=== PATIENT | male | born 1955 | race Caucasian/White ===

== ENCOUNTER 2017-10-19 23:34 | Inpatient (IN) | payer SELFPAY ==
[~2017-10-19] VITALS: Ht 190.5 cm; Wt 90.0 kg
[2017-10-19 23:34] VITALS: BP 159/92
[2017-10-19 23:47] LABS: BASO # 0.1 10*3/uL (0.0-0.1); BASO % 0.9 % (0.0-1.0); EOS # 0.2 10*3/uL (0.0-0.4); EOS % 1.9 % (1.0-4.0); HEMATOCRIT 46.5 % (42.0-52.0); LYMPH # 2.2 10*3/uL (1.3-4.4); LYMPH % 26.8 % (27.0-41.0); MEAN CELL VOLUME 92.6 fl (80.0-94.0); MEAN CORPUSCULAR HGB 31.9 pg (27.0-31.0); MEAN CORPUSCULAR HGB CONC 34.4 g/dl (33.0-37.0); MEAN PLATELET VOLUME 8.9 fl (9.6-12.3); MONO # 0.8 10*3/uL (0.1-1.0); NEUT # 4.9 10*3/uL (2.3-7.9); NEUT % 60.3 % (47.0-73.0); PLATELET COUNT AUTOMATED 143 10*3/uL (130-400); RED BLOOD COUNT 5.02 10*6/uL (4.50-5.90); RED CELL DISTRI WIDTH 12.4 % (0-14.5); WHITE BLOOD COUNT 8.1 10*3/uL (4.8-10.8)
[2017-10-19 23:58] LABS: ACT PARTIAL THROMBO TIME 24.7 SECONDS (20.8-31.5); INTERNATIONAL NORM RATIO 0.9 (2.0-3.5)
[2017-10-20 00:03] LABS: ALBUMIN 4.1 gm/dl (3.1-4.5); ALKALINE PHOSPHATASE 88 U/L (45-117); BUN 9 mg/dl (7-24); CHLORIDE 101 mmol/L (98-107); CREATININE 0.99 mg/dL (0.70-1.30); POTASSIUM 3.5 mmol/L (3.5-5.1); SGOT/AST 37 IU/L (3-35); SGPT/ALT 40 U/L (12-78); SODIUM 135 mmol/L (136-145); TOTAL PROTEIN 7.7 gm/dL (6.4-8.2); TROPONIN I 0.021 ng/ml (<0.045)
[2017-10-20 00:08] VITALS: BP 129/97
[2017-10-20 00:37] LABS: BILIRUBIN NEGATIVE (NEGATIVE); BLOOD TRACE-INTACT (NEGATIVE); CLARITY CLEAR (CLEAR); COLOR YELLOW (YELLOW); GLUCOSE NEGATIVE (NEGATIVE); KETONE NEGATIVE (NEGATIVE); LEUKO ESTERASE NEGATIVE (NEGATIVE); NITRITE NEGATIVE (NEGATIVE); PH 5.5 (5.0-9.0); SPECIFIC GRAVITY <= 1.005 (1.005-1.030); UROBILINOGEN 0.2 E.U./dl (0.2-1.0)
[2017-10-20 00:45] LABS: RBC 0-2 rbc/hpf (0-2)
[2017-10-20 00:47] LABS: URINE AMPHETAMINES < 1000 (1000ng/ml); URINE BARBITURATES < 200 (200ng/ml); URINE BENZODIAZEPINES < 200 (200ng/ml); URINE CANNABINOIDS (THC) > 50 (50ng/ml); URINE COCAINE < 300 (300ng/ml); URINE METHADONE < 300 (300ng/ml); URINE OPIATES < 300 (300ng/ml)
[2017-10-20 00:48] LABS: URINE PHENCYCLIDINE < 25 (25ng/ml)
[2017-10-20 00:49] VITALS: BP 138/91
[2017-10-20 06:14] LABS: BASO % 0.7 % (0.0-1.0); EOS # 0.2 10*3/uL (0.0-0.4); EOS % 3.5 % (1.0-4.0); HEMATOCRIT 44.7 % (42.0-52.0); HEMOGLOBIN 14.8 g/dl (14.0-18.0); LYMPH # 1.8 10*3/uL (1.3-4.4); LYMPH % 32.6 % (27.0-41.0); MEAN CELL VOLUME 95.1 fl (80.0-94.0); MEAN CORPUSCULAR HGB 31.5 pg (27.0-31.0); MEAN CORPUSCULAR HGB CONC 33.1 g/dl (33.0-37.0); MEAN PLATELET VOLUME 9.3 fl (9.6-12.3); MONO # 0.6 10*3/uL (0.1-1.0); MONO % 11.5 % (3.0-9.0); NEUT # 2.8 10*3/uL (2.3-7.9); NEUT % 51.5 % (47.0-73.0); PLATELET COUNT AUTOMATED 131 10*3/uL (130-400); RED CELL DISTRI WIDTH 12.4 % (0-14.5); WHITE BLOOD COUNT 5.4 10*3/uL (4.8-10.8)
[2017-10-20 06:20] LABS: ALBUMIN 3.6 gm/dl (3.1-4.5); ALKALINE PHOSPHATASE 79 U/L (45-117); BUN 7 mg/dl (7-24); CHLORIDE 103 mmol/L (98-107); CHOLESTEROL 172 mg/dL (<200); CREATININE 0.95 mg/dL (0.70-1.30); HDL CHOLESTEROL 68 mg/dl (40-60); LDL CHOLESTEROL 81 mg/dL (9-159); PHOSPHOROUS 3.1 mg/dL (2.5-4.9); POTASSIUM 3.5 mmol/L (3.5-5.1); SGOT/AST 37 IU/L (3-35); SGPT/ALT 36 U/L (12-78); SODIUM 143 mmol/L (136-145); TOTAL PROTEIN 6.8 gm/dL (6.4-8.2); TRIGLYCERIDES 117 mg/dl (<150); VLDL CHOLESTEROL 23 mg/dL (6-40)
[2017-10-20 08:00] VITALS: BP 138/86
[2017-10-20 08:04] LABS: VITAMIN D, 25-HYDROXY 27.7 ng/mL (30-100)
[2017-10-20 12:00] VITALS: BP 156/54
[2017-10-20 16:00] VITALS: BP 152/80
[2017-10-20 20:00] VITALS: BP 139/79
[2017-10-21] VITALS: BP 143/94
[2017-10-21 08:00] VITALS: BP 140/88
[2017-10-21 12:00] VITALS: BP 129/80
[2017-10-21 16:00] VITALS: BP 150/82
== END 2017-10-21 20:15 | disposition left against medical advice (07) | DRG 313 ==
LOC: ED → 5E 10-20 01:01 → EDHOLD 10-20 01:01 → 5E 10-20 01:26
PROVIDERS: Emergency Medicine Emergency Medical Services; Internal Medicine Hospice and Palliative Medicine
PROC: 3E073KZ Introduction of Other Diagnostic Substance into Coronary Artery, Percutaneous Approach (ICD-10-PCS; principal; 2017-10-20)
PROC: 4A02XM4 Measurement of Cardiac Total Activity, External Approach (ICD-10-PCS; principal; 2017-10-20)
DX: R07.9 Chest pain, unspecified (principal); K92.0 Hematemesis; E83.41 Hypermagnesemia; E83.51 Hypocalcemia; E87.1 Hypo-osmolality and hyponatremia; F33.9 Major depressive disorder, recurrent, unspecified; D72.810 Lymphocytopenia; R00.0 Tachycardia, unspecified; R74.0 Nonspecific elevation of levels of transaminase and lactic acid dehydrogenase [LDH]; F43.10 Post-traumatic stress disorder, unspecified; Z71.6 Tobacco abuse counseling; F14.90 Cocaine use, unspecified, uncomplicated; F12.90 Cannabis use, unspecified, uncomplicated; Z90.49 Acquired absence of other specified parts of digestive tract; Z96.652 Presence of left artificial knee joint; F17.200 Nicotine dependence, unspecified, uncomplicated; Z82.49 Family history of ischemic heart disease and other diseases of the circulatory system; Z82.0 Family history of epilepsy and other diseases of the nervous system; F10.129 Alcohol abuse with intoxication, unspecified; Z53.21 Procedure and treatment not carried out due to patient leaving prior to being seen by health care provider

== ENCOUNTER 2017-12-12 00:25 | Inpatient (IN) | payer MEDICAID ==
[2017-12-12] VITALS (14 sets, daily range): BP systolic 116–162; BP diastolic 65–119
[~2017-12-12] VITALS: Ht 190.5 cm; Wt 95.3 kg
--- NOTE | ~2017-12-12 | EKG ---
[place], [place] ELECTROCARDIOGRAM REPORT NAME: BILLIE BARNETT UNIT #: [id number] ROOM: 523 DOCTOR: WILBERT DRAFT REPORT BIRTHDATE: [birth year] [facility] Test Date: 2017-12-12 Test Time: 00:31:54 Pat Name: BILLIE BARNETT Department: ER Room: 12 Gender: M Tree Surgeon Helper: ANNABEL : 1955 Requested By: STEVE PITTMAN Order Number: [id number] Reading MD: Gwendolyn Fan MD Measurements Intervals [place] Rate: 99 P: 42 UT: 182 QRS: 54 QRSD: 95 T: 37 QT: 347 QTc: 446 Interpretive Statements Sinus tachycardia Probable anteroseptal infarct, old Electronically Signed On 12-12-2017 9:43:58 PDT by Gwendolyn Fan MD CM:EKGRPT:ELECTROCARDIOGRAM REPORT 0031 0943 STEVE PITTMAN MD EPIPHANY DRAFT REPORT STEVE PITTMAN MD
--- NOTE | ~2017-12-12 | EKG ---
[place], [place] ELECTROCARDIOGRAM REPORT NAME: BILLIE BARNETT UNIT #: [id number] ROOM: 523 DOCTOR: WILBERT DRAFT REPORT BIRTHDATE: [birth year] [facility] Test Date: 2017-12-12 Test Time: 03:50:31 Pat Name: BILLIE BARNETT Department: Room: [facility] Gender: M Mobility Manager: CARLIEN : 1955 Requested By: STEVE PITTMAN Order Number: [id number] Reading MD: Gwendolyn Fan MD Measurements Intervals [place] Rate: 85 P: 43 SC: 222 QRS: 36 QRSD: 96 T: 49 QT: 391 QTc: 465 Interpretive Statements Sinus rhythm Prolonged [place] interval Anteroseptal infarct, old Baseline wander in lead(s) V1 Electronically Signed On 12-12-2017 9:46:50 PDT by Gwendolyn Fan MD CM:EKGRPT:ELECTROCARDIOGRAM REPORT 0350 0946 STEVE PITTMAN MD EPIPHANY DRAFT REPORT STEVE PITTMAN MD
--- NOTE | ~2017-12-12 | EKG ---
[place], [place] ELECTROCARDIOGRAM REPORT NAME: BILLIE BARNETT UNIT #: [id number] ROOM: 523 DOCTOR: EPIPHANY DRAFT REPORT BIRTHDATE: [birth year] [facility] Test Date: 2017-12-12 Test Time: 06:18:47 Pat Name: BILLIE BARNETT Department: Room: Gender: M Merchandiser Seasonal: : 1955 Requested By: STEVE PITTMAN Order Number: [id number] Reading MD: Gwendolyn Fan MD Measurements Intervals [place] Rate: 82 P: 48 NM: 225 QRS: 45 QRSD: 93 T: 40 QT: 400 QTc: 468 Interpretive Statements Sinus rhythm Ventricular premature complex Prolonged NM interval Probable anteroseptal infarct, old Electronically Signed On 12-12-2017 9:46:58 PDT by Gwendolyn Fan MD CM:EKGRPT:ELECTROCARDIOGRAM REPORT 0618 0946 STEVE PITTMAN MD EPIPHANY DRAFT REPORT STEVE PITTMAN MD
[2017-12-12 01:03] LABS: BASO % 0.7 % (0.0-1.0); EOS # 0.2 10*3/uL (0.0-0.4); EOS % 3.4 % (1.0-4.0); HEMATOCRIT 44.2 % (42.0-52.0); HEMOGLOBIN 14.9 g/dl (14.0-18.0); LYMPH # 1.3 10*3/uL (1.3-4.4); LYMPH % 24.2 % (27.0-41.0); MEAN CELL VOLUME 100.9 fl (80.0-94.0); MEAN CORPUSCULAR HGB CONC 33.7 g/dl (33.0-37.0); MEAN PLATELET VOLUME 8.9 fl (9.6-12.3); MONO # 0.6 10*3/uL (0.1-1.0); MONO % 10.8 % (3.0-9.0); NEUT # 3.4 10*3/uL (2.3-7.9); NEUT % 60.7 % (47.0-73.0); PLATELET COUNT AUTOMATED 119 10*3/uL (130-400); RED BLOOD COUNT 4.38 10*6/uL (4.50-5.90); RED CELL DISTRI WIDTH 13.9 % (0-14.5); WHITE BLOOD COUNT 5.5 10*3/uL (4.8-10.8)
[2017-12-12 01:16] LABS: ACT PARTIAL THROMBO TIME 24.2 SECONDS (20.8-31.5)
[2017-12-12 01:18] LABS: ALBUMIN 3.8 gm/dl (3.1-4.5); ALKALINE PHOSPHATASE 62 U/L (45-117); BUN 9 mg/dl (7-24); CHLORIDE 103 mmol/L (98-107); CKMB 4.8 ng/ml (0.5-3.6); CPK 353 U/L (39-308); LIPASE 165 U/L (73-393); POTASSIUM 3.4 mmol/L (3.5-5.1); SGOT/AST 29 IU/L (3-35); SGPT/ALT 45 U/L (12-78); SODIUM 138 mmol/L (136-145); TOTAL PROTEIN 7.4 gm/dL (6.4-8.2); TROPONIN I < 0.015 ng/ml (<0.045)
[2017-12-12 01:38] LABS: BILIRUBIN NEGATIVE (NEGATIVE); BLOOD NEGATIVE (NEGATIVE); CLARITY CLEAR (CLEAR); COLOR YELLOW (YELLOW); GLUCOSE NEGATIVE (NEGATIVE); KETONE NEGATIVE (NEGATIVE); LEUKO ESTERASE NEGATIVE (NEGATIVE); NITRITE NEGATIVE (NEGATIVE); PH 5.5 (5.0-9.0); SPECIFIC GRAVITY <= 1.005 (1.005-1.030); UROBILINOGEN 0.2 E.U./dl (0.2-1.0)
[2017-12-12 01:46] LABS: BACTERIA TRACE
[2017-12-12 07:00] LABS: BASO % 0.7 % (0.0-1.0); HEMATOCRIT 42.5 % (42.0-52.0); HEMOGLOBIN 13.8 g/dl (14.0-18.0); LYMPH # 0.3 10*3/uL (1.3-4.4); LYMPH % 10.7 % (27.0-41.0); MEAN CELL VOLUME 101.7 fl (80.0-94.0); MEAN CORPUSCULAR HGB CONC 32.5 g/dl (33.0-37.0); MEAN PLATELET VOLUME 9.1 fl (9.6-12.3); MONO # 0.1 10*3/uL (0.1-1.0); MONO % 2.1 % (3.0-9.0); NEUT # 2.4 10*3/uL (2.3-7.9); NEUT % 86.1 % (47.0-73.0); PLATELET COUNT AUTOMATED 116 10*3/uL (130-400); RED BLOOD COUNT 4.18 10*6/uL (4.50-5.90); RED CELL DISTRI WIDTH 13.9 % (0-14.5); WHITE BLOOD COUNT 2.8 10*3/uL (4.8-10.8)
[2017-12-12 07:09] LABS: BUN 10 mg/dl (7-24); CHLORIDE 105 mmol/L (98-107); CREATININE 1.07 mg/dL (0.70-1.30); PHOSPHOROUS 1.9 mg/dL (2.5-4.9); POTASSIUM 3.8 mmol/L (3.5-5.1); SODIUM 139 mmol/L (136-145)
[2017-12-13] VITALS: BP 160/90
[2017-12-13 02:00] VITALS: BP 140/68
[2017-12-13 06:10] LABS: BASO % 0.3 % (0.0-1.0); EOS % 0.3 % (1.0-4.0); HEMATOCRIT 43.1 % (42.0-52.0); LYMPH # 1.1 10*3/uL (1.3-4.4); MEAN CELL VOLUME 102.1 fl (80.0-94.0); MEAN CORPUSCULAR HGB 33.2 pg (27.0-31.0); MEAN CORPUSCULAR HGB CONC 32.5 g/dl (33.0-37.0); MEAN PLATELET VOLUME 9.6 fl (9.6-12.3); MONO # 0.7 10*3/uL (0.1-1.0); NEUT # 5.7 10*3/uL (2.3-7.9); PLATELET COUNT AUTOMATED 120 10*3/uL (130-400); RED BLOOD COUNT 4.22 10*6/uL (4.50-5.90); RED CELL DISTRI WIDTH 13.7 % (0-14.5); WHITE BLOOD COUNT 7.5 10*3/uL (4.8-10.8)
[2017-12-13 06:25] LABS: ALBUMIN 3.5 gm/dl (3.1-4.5); ALKALINE PHOSPHATASE 52 U/L (45-117); BUN 13 mg/dl (7-24); CHLORIDE 105 mmol/L (98-107); CREATININE 1.04 mg/dL (0.70-1.30); PHOSPHOROUS 2.9 mg/dL (2.5-4.9); POTASSIUM 3.8 mmol/L (3.5-5.1); SGOT/AST 14 IU/L (3-35); SGPT/ALT 32 U/L (12-78); SODIUM 142 mmol/L (136-145); TOTAL PROTEIN 6.5 gm/dL (6.4-8.2)
[2017-12-13 12:00] VITALS: BP 129/85
[2017-12-13 16:00] VITALS: BP 137/85
== END 2017-12-13 18:15 | disposition left against medical advice (07) | DRG 607 ==
LOC: ED 00:25 → 5E 02:05
PROVIDERS: Emergency Medicine; Internal Medicine
DX: L25.5 Unspecified contact dermatitis due to plants, except food (principal); E83.41 Hypermagnesemia; F33.9 Major depressive disorder, recurrent, unspecified; F10.232 Alcohol dependence with withdrawal with perceptual disturbance; M94.0 Chondrocostal junction syndrome [Tietze]; R79.89 Other specified abnormal findings of blood chemistry; F19.10 Other psychoactive substance abuse, uncomplicated; F10.229 Alcohol dependence with intoxication, unspecified; R29.6 Repeated falls; R00.0 Tachycardia, unspecified; E87.6 Hypokalemia; Z53.21 Procedure and treatment not carried out due to patient leaving prior to being seen by health care provider; Z72.0 Tobacco use; Z71.6 Tobacco abuse counseling; Z91.81 History of falling; Z90.49 Acquired absence of other specified parts of digestive tract; Z82.49 Family history of ischemic heart disease and other diseases of the circulatory system; Z81.8 Family history of other mental and behavioral disorders

== ENCOUNTER 2017-12-23 15:07 | Inpatient (IN) | payer MEDICAID ==
[~2017-12-23] VITALS: Ht 188 cm; Wt 97.7 kg
--- NOTE | ~2017-12-23 | EKG ---
[place], [place] ELECTROCARDIOGRAM REPORT NAME: BILLIE BARNETT UNIT #: [id number] ROOM: [facility] DOCTOR: WILBERT DRAFT REPORT BIRTHDATE: [birth year] [facility] Test Date: 2017-12-23 Test Time: 15:13:43 Pat Name: BILLIE BARNETT Department: Room: [facility] Gender: M Shingles Roofer Helper: 15 : 1955 Requested By: KARRI TOLBERT Order Number: [id number] Reading MD: Gwendolyn Fan MD Measurements Intervals [place] Rate: 86 P: 34 SD: 216 QRS: 17 QRSD: 101 T: 29 QT: 388 QTc: 464 Interpretive Statements Sinus rhythm Borderline prolonged SD interval Probable anteroseptal infarct, old Baseline wander in lead(s) V2 Compared to ECG 12/12/2017 06:18:47 Ventricular premature complex(es) no longer present Myocardial infarct finding still present Electronically Signed On 12-24-2017 11:11:30 PDT by Gwendolyn Fan MD CM:EKGRPT:ELECTROCARDIOGRAM REPORT 1513 1111 KARRI ATKINS DRAFT REPORT KARRI TOLBERT
--- NOTE | ~2017-12-23 | EKG ---
[place], [place] ELECTROCARDIOGRAM REPORT NAME: BILLIE BARNETT UNIT #: [id number] ROOM: [facility] DOCTOR: WILBERT DRAFT REPORT BIRTHDATE: [birth year] [facility] Test Date: 2017-12-23 Test Time: 21:43:30 Pat Name: BILLIE BARNETT Department: Room: [facility] Gender: M Heel Sander Rubber: EKG.MD : 1955 Requested By: KARRI TOLBERT Order Number: [id number] Reading MD: Gwendolyn Fan MD Measurements Intervals [place] Rate: 78 P: 56 [place]: 230 QRS: 54 QRSD: 97 T: 28 QT: 426 QTc: 486 Interpretive Statements Sinus rhythm Multiform ventricular premature complexes Prolonged [place] interval Anteroseptal infarct, age indeterminate Baseline wander in lead(s) V3 Compared to ECG 12/12/2017 06:18:47 No significant changes Electronically Signed On 12-24-2017 11:12:45 PDT by Gwendolyn Fan MD CM:EKGRPT:ELECTROCARDIOGRAM REPORT 1112 KARRI TOLBERT EPIPHANY DRAFT REPORT KARRI TOLBERT
--- NOTE | ~2017-12-23 | EKG ---
[place], [place] ELECTROCARDIOGRAM REPORT NAME: BILLIE BARNETT UNIT #: [id number] ROOM: [facility] DOCTOR: WILBERT DRAFT REPORT BIRTHDATE: [birth year] [facility] Test Date: 2017-12-23 Test Time: 18:31:51 Pat Name: BILLIE BARNETT Department: Room: [facility] Gender: M Fitness And Wellness Instructor: EKG.HI : 1955 Requested By: KARRI TOLBERT Order Number: [id number] Reading MD: Gwendolyn Fan MD Measurements Intervals [place] Rate: 80 P: 27 TX: 224 QRS: 10 QRSD: 97 T: 40 QT: 433 QTc: 500 Interpretive Statements Sinus rhythm Ventricular premature complex Prolonged [place] interval Probable anteroseptal infarct, old Compared to ECG 12/12/2017 06:18:47 No significant changes Electronically Signed On 12-24-2017 11:12:32 PDT by Gwendolyn Fan MD CM:EKGRPT:ELECTROCARDIOGRAM REPORT 1831 1112 KARRI TOLBERT EPIPHANY DRAFT REPORT KARRI TOLBERT
[2017-12-23 15:07] VITALS: BP 140/94
[2017-12-23 15:23] LABS: BASO % 0.8 % (0.0-1.0); EOS # 0.2 10*3/uL (0.0-0.4); HEMATOCRIT 42.5 % (42.0-52.0); HEMOGLOBIN 14.3 g/dl (14.0-18.0); LYMPH # 1.4 10*3/uL (1.3-4.4); LYMPH % 29.6 % (27.0-41.0); MEAN CELL VOLUME 100.2 fl (80.0-94.0); MEAN CORPUSCULAR HGB 33.7 pg (27.0-31.0); MEAN CORPUSCULAR HGB CONC 33.6 g/dl (33.0-37.0); MEAN PLATELET VOLUME 8.4 fl (9.6-12.3); MONO # 0.5 10*3/uL (0.1-1.0); MONO % 10.2 % (3.0-9.0); NEUT # 2.6 10*3/uL (2.3-7.9); PLATELET COUNT AUTOMATED 121 10*3/uL (130-400); RED BLOOD COUNT 4.24 10*6/uL (4.50-5.90); RED CELL DISTRI WIDTH 13.2 % (0-14.5); WHITE BLOOD COUNT 4.8 10*3/uL (4.8-10.8)
[2017-12-23 15:32] VITALS: BP 140/91
[2017-12-23 15:36] LABS: ACT PARTIAL THROMBO TIME 25.5 SECONDS (20.8-31.5)
[2017-12-23 15:43] LABS: ALBUMIN 3.8 gm/dl (3.1-4.5); ALKALINE PHOSPHATASE 71 U/L (45-117); BUN 8 mg/dl (7-24); CHLORIDE 104 mmol/L (98-107); CREATININE 0.98 mg/dL (0.70-1.30); POTASSIUM 3.7 mmol/L (3.5-5.1); SGOT/AST 26 IU/L (3-35); SGPT/ALT 46 U/L (12-78); SODIUM 138 mmol/L (136-145)
[2017-12-23 15:45] LABS: TROPONIN I < 0.015 ng/ml (<0.045)
[2017-12-23 16:48] VITALS: BP 142/85
[2017-12-23 17:00] VITALS: BP 157/91
[2017-12-23 20:00] VITALS: BP 100/53
[2017-12-23 22:09] LABS: BILIRUBIN NEGATIVE (NEGATIVE); BLOOD NEGATIVE (NEGATIVE); CLARITY CLEAR (CLEAR); COLOR YELLOW (YELLOW); GLUCOSE NEGATIVE (NEGATIVE); KETONE NEGATIVE (NEGATIVE); LEUKO ESTERASE NEGATIVE (NEGATIVE); NITRITE NEGATIVE (NEGATIVE); SPECIFIC GRAVITY 1.025 (1.005-1.030); UROBILINOGEN 0.2 E.U./dl (0.2-1.0)
[2017-12-23 22:18] LABS: URINE AMPHETAMINES < 1000 (1000ng/ml); URINE BARBITURATES < 200 (200ng/ml); URINE BENZODIAZEPINES > 200 (200ng/ml); URINE CANNABINOIDS (THC) < 50 (50ng/ml); URINE COCAINE < 300 (300ng/ml); URINE METHADONE < 300 (300ng/ml); URINE OPIATES < 300 (300ng/ml)
[2017-12-23 22:19] LABS: URINE PHENCYCLIDINE < 25 (25ng/ml)
[2017-12-24] VITALS: BP 126/57
[2017-12-24 04:00] VITALS: BP 117/62
[2017-12-24 05:51] LABS: BASO % 0.5 % (0.0-1.0); EOS # 0.2 10*3/uL (0.0-0.4); EOS % 3.3 % (1.0-4.0); HEMATOCRIT 41.7 % (42.0-52.0); HEMOGLOBIN 13.5 g/dl (14.0-18.0); LYMPH # 1.6 10*3/uL (1.3-4.4); LYMPH % 28.7 % (27.0-41.0); MEAN CORPUSCULAR HGB 33.3 pg (27.0-31.0); MEAN CORPUSCULAR HGB CONC 32.4 g/dl (33.0-37.0); MEAN PLATELET VOLUME 8.9 fl (9.6-12.3); MONO # 0.4 10*3/uL (0.1-1.0); MONO % 7.5 % (3.0-9.0); NEUT # 3.3 10*3/uL (2.3-7.9); NEUT % 59.5 % (47.0-73.0); PLATELET COUNT AUTOMATED 112 10*3/uL (130-400); RED BLOOD COUNT 4.05 10*6/uL (4.50-5.90); RED CELL DISTRI WIDTH 13.2 % (0-14.5); WHITE BLOOD COUNT 5.5 10*3/uL (4.8-10.8)
[2017-12-24 06:08] LABS: BUN 12 mg/dl (7-24); CHLORIDE 107 mmol/L (98-107); CREATININE 1.12 mg/dL (0.70-1.30); PHOSPHOROUS 3.2 mg/dL (2.5-4.9); POTASSIUM 3.9 mmol/L (3.5-5.1); SODIUM 142 mmol/L (136-145)
[2017-12-24 08:00] VITALS: BP 119/62
[2017-12-24 12:00] VITALS: BP 109/56
[2017-12-24 16:00] VITALS: BP 152/68
[2017-12-24 20:00] VITALS: BP 159/90
[2017-12-25] VITALS: BP 154/90
[2017-12-25 08:00] VITALS: BP 164/88
[2017-12-25 12:00] VITALS: BP 154/86
[2017-12-25 16:00] VITALS: BP 152/97
[2017-12-25 20:00] VITALS: BP 153/101
[2017-12-26 00:20] VITALS: BP 158/98
[2017-12-26 08:00] VITALS: BP 100/58
[2017-12-26 12:00] VITALS: BP 102/58
[2017-12-26 16:00] VITALS: BP 106/75
[2017-12-26 20:00] VITALS: BP 119/62
[2017-12-27] VITALS: BP 124/66
[2017-12-27 08:00] VITALS: BP 140/80
== END 2017-12-27 14:15 | disposition home or self-care (01) | DRG 206 ==
LOC: ED 15:07 → 4E 15:55 → EDHOLD 15:55 → ICCU 16:21 → 4E 12-24 17:05
PROVIDERS: Nurse Practitioner Family; Student in an Organized Health Care Education/Training Program
DX: M94.0 Chondrocostal junction syndrome [Tietze] (principal); D69.6 Thrombocytopenia, unspecified; E83.41 Hypermagnesemia; E83.51 Hypocalcemia; F33.9 Major depressive disorder, recurrent, unspecified; J98.11 Atelectasis; D75.89 Other specified diseases of blood and blood-forming organs; R73.9 Hyperglycemia, unspecified; R03.0 Elevated blood-pressure reading, without diagnosis of hypertension; Y90.8 Blood alcohol level of 240 mg/100 ml or more; I44.0 Atrioventricular block, first degree; F10.229 Alcohol dependence with intoxication, unspecified; G47.00 Insomnia, unspecified; F19.10 Other psychoactive substance abuse, uncomplicated; R29.6 Repeated falls; Z90.49 Acquired absence of other specified parts of digestive tract; Z82.49 Family history of ischemic heart disease and other diseases of the circulatory system; Z82.0 Family history of epilepsy and other diseases of the nervous system; Z71.6 Tobacco abuse counseling

== ENCOUNTER 2018-01-02 23:49 | Emergency (ER) | payer MEDICAID ==
[~2018-01-02] VITALS: Ht 187.9 cm; Wt 97.5 kg
--- NOTE | ~2018-01-02 | EKG ---
[place], [place] ELECTROCARDIOGRAM REPORT NAME: BILLIE BARNETT UNIT #: [id number] ROOM: DOCTOR: EPIPHANY DRAFT REPORT BIRTHDATE: [birth year] [facility] Test Date: 2018-01-03 Test Time: 00:00:04 Pat Name: BILLIE BARNETT Department: Room: Gender: M Tube Winder: : 1955 Requested By: RIK WARD Order Number: [id number] Reading MD: Diego Calderon MD Measurements Intervals [place] Rate: 111 P: -20 [place]: 160 QRS: 46 QRSD: 95 T: 30 QT: 339 QTc: 461 Interpretive Statements Sinus tachycardia Probable anteroseptal infarct, old Baseline wander in lead(s) II,V5,V6 Compared to ECG 12/23/2017 21:43:30 Sinus rhythm no longer present Ventricular premature complex(es) no longer present First degree AV block no longer present Myocardial infarct finding still present Electronically Signed On 01-04-2018 8:53:09 PDT by Diego Calderon MD CM:EKGRPT:ELECTROCARDIOGRAM REPORT 0000 0853 RIK BENTON DRAFT REPORT RIK WARD DO
[2018-01-03 00:45] LABS: BASO % 0.5 % (0.0-1.0); EOS # 0.1 10*3/uL (0.0-0.4); EOS % 2.3 % (1.0-4.0); HEMATOCRIT 42.2 % (42.0-52.0); HEMOGLOBIN 14.5 g/dl (14.0-18.0); LYMPH # 1.6 10*3/uL (1.3-4.4); LYMPH % 27.5 % (27.0-41.0); MEAN CELL VOLUME 99.5 fl (80.0-94.0); MEAN CORPUSCULAR HGB 34.2 pg (27.0-31.0); MEAN CORPUSCULAR HGB CONC 34.4 g/dl (33.0-37.0); MEAN PLATELET VOLUME 8.8 fl (9.6-12.3); MONO # 0.6 10*3/uL (0.1-1.0); MONO % 11.2 % (3.0-9.0); NEUT # 3.3 10*3/uL (2.3-7.9); NEUT % 58.3 % (47.0-73.0); PLATELET COUNT AUTOMATED 136 10*3/uL (130-400); RED BLOOD COUNT 4.24 10*6/uL (4.50-5.90); RED CELL DISTRI WIDTH 12.7 % (0-14.5); WHITE BLOOD COUNT 5.6 10*3/uL (4.8-10.8)
[2018-01-03 00:56] LABS: ACT PARTIAL THROMBO TIME 25.5 SECONDS (20.8-31.5)
[2018-01-03 01:02] LABS: ALBUMIN 3.6 gm/dl (3.1-4.5); ALKALINE PHOSPHATASE 65 U/L (45-117); BUN 6 mg/dl (7-24); CHLORIDE 103 mmol/L (98-107); CREATININE 1.06 mg/dL (0.70-1.30); POTASSIUM 3.5 mmol/L (3.5-5.1); SGOT/AST 27 IU/L (3-35); SGPT/ALT 47 U/L (12-78); SODIUM 139 mmol/L (136-145); TROPONIN I < 0.015 ng/ml (<0.045)
== END 2018-01-03 01:36 | disposition short-term general hospital (02) ==
LOC: ED 23:49
PROVIDERS: Student in an Organized Health Care Education/Training Program
DX: M62.81 Muscle weakness (generalized) (principal); R07.9 Chest pain, unspecified; Z87.891 Personal history of nicotine dependence; Z90.49 Acquired absence of other specified parts of digestive tract; Z98.890 Other specified postprocedural states

== ENCOUNTER 2018-01-23 23:38 | Inpatient (IN) | payer MEDICAID ==
[~2018-01-23] VITALS: Ht 193 cm; Wt 96.4 kg
--- NOTE | ~2018-01-23 | EKG ---
[place], [place] ELECTROCARDIOGRAM REPORT NAME: BILLIE BARNETT UNIT #: [id number] ROOM: [facility] DOCTOR: MARITZAANY DRAFT REPORT BIRTHDATE: [birth year] [facility] Test Date: 2018-01-24 Test Time: 00:23:46 Pat Name: BILLIE BARNETT Department: Room: [facility] Gender: M Quality Head: LING : 1955 Requested By: PATRICK FINLEY Order Number: [id number] Reading MD: Hu Barrientos MD Measurements Intervals [place] Rate: 115 P: -11 [place]: 171 QRS: 0 QRSD: 92 T: 12 QT: 317 QTc: 439 Interpretive Statements Sinus tachycardia Anteroseptal infarct, old Compared to ECG 01/14/2018 04:14:09 Sinus rhythm has been replaced by sinus tachycardia Myocardial infarct finding still present Electronically Signed On 01-24-2018 11:14:04 PDT by Hu Barrientos MD CM:EKGRPT:ELECTROCARDIOGRAM REPORT 0023 1114 PATRICK FINLEY MD EPIPHANY DRAFT REPORT PATRICK FINLEY MD
[2018-01-23 23:39] VITALS: BP 138/87
[2018-01-24] VITALS (7 sets, daily range): BP systolic 116–166; BP diastolic 70–104
[2018-01-24 00:13] LABS: BASO # 0.1 10*3/uL (0.0-0.1); BASO % 0.7 % (0.0-1.0); EOS # 0.3 10*3/uL (0.0-0.4); EOS % 4.4 % (1.0-4.0); LYMPH # 1.9 10*3/uL (1.3-4.4); LYMPH % 27.7 % (27.0-41.0); MEAN CELL VOLUME 100.9 fl (80.0-94.0); MEAN CORPUSCULAR HGB 33.6 pg (27.0-31.0); MEAN CORPUSCULAR HGB CONC 33.3 g/dl (33.0-37.0); MEAN PLATELET VOLUME 8.6 fl (9.6-12.3); MONO # 0.8 10*3/uL (0.1-1.0); MONO % 11.5 % (3.0-9.0); NEUT # 3.8 10*3/uL (2.3-7.9); NEUT % 55.6 % (47.0-73.0); PLATELET COUNT AUTOMATED 133 10*3/uL (130-400); RED BLOOD COUNT 4.46 10*6/uL (4.50-5.90); RED CELL DISTRI WIDTH 12.1 % (0-14.5); WHITE BLOOD COUNT 6.9 10*3/uL (4.8-10.8)
[2018-01-24 00:27] LABS: ALBUMIN 3.8 gm/dl (3.1-4.5); ALKALINE PHOSPHATASE 80 U/L (45-117); BUN 7 mg/dl (7-24); CHLORIDE 106 mmol/L (98-107); CREATININE 1.07 mg/dL (0.70-1.30); POTASSIUM 3.8 mmol/L (3.5-5.1); SGOT/AST 27 IU/L (3-35); SGPT/ALT 43 U/L (12-78); SODIUM 139 mmol/L (136-145); TOTAL PROTEIN 7.6 gm/dL (6.4-8.2)
[2018-01-24 00:28] LABS: ACETAMINOPHEN (TYLENOL) < 2.0 ug/ml (10-30)
[2018-01-24 00:31] LABS: BILIRUBIN NEGATIVE (NEGATIVE); BLOOD NEGATIVE (NEGATIVE); CLARITY CLEAR (CLEAR); COLOR YELLOW (YELLOW); GLUCOSE NEGATIVE (NEGATIVE); KETONE NEGATIVE (NEGATIVE); LEUKO ESTERASE NEGATIVE (NEGATIVE); NITRITE NEGATIVE (NEGATIVE); PH 5.5 (5.0-9.0); SPECIFIC GRAVITY <= 1.005 (1.005-1.030); UROBILINOGEN 0.2 E.U./dl (0.2-1.0)
[2018-01-24 00:39] LABS: URINE AMPHETAMINES < 1000 (1000ng/ml); URINE BARBITURATES < 200 (200ng/ml); URINE BENZODIAZEPINES < 200 (200ng/ml); URINE CANNABINOIDS (THC) < 50 (50ng/ml); URINE COCAINE < 300 (300ng/ml); URINE METHADONE < 300 (300ng/ml); URINE OPIATES < 300 (300ng/ml)
[2018-01-24 00:40] LABS: URINE PHENCYCLIDINE < 25 (25ng/ml)
[2018-01-24 00:50] LABS: WBC 0-2 wbc/hpf (0-5)
[2018-01-24 02:07] LABS: INTERNATIONAL NORM RATIO 0.9 (2.0-3.5)
[2018-01-25] VITALS: BP 151/70
[2018-01-25 04:00] VITALS: BP 152/99
[2018-01-25 04:34] LABS: BASO % 0.6 % (0.0-1.0); EOS # 0.2 10*3/uL (0.0-0.4); EOS % 4.5 % (1.0-4.0); HEMATOCRIT 40.7 % (42.0-52.0); HEMOGLOBIN 13.4 g/dl (14.0-18.0); LYMPH # 1.3 10*3/uL (1.3-4.4); LYMPH % 23.7 % (27.0-41.0); MEAN CORPUSCULAR HGB 33.6 pg (27.0-31.0); MEAN CORPUSCULAR HGB CONC 32.9 g/dl (33.0-37.0); MEAN PLATELET VOLUME 9.5 fl (9.6-12.3); MONO # 0.4 10*3/uL (0.1-1.0); NEUT # 3.4 10*3/uL (2.3-7.9); PLATELET COUNT AUTOMATED 94 10*3/uL (130-400); RED BLOOD COUNT 3.99 10*6/uL (4.50-5.90); RED CELL DISTRI WIDTH 12.1 % (0-14.5); WHITE BLOOD COUNT 5.4 10*3/uL (4.8-10.8)
[2018-01-25 05:02] LABS: BUN 11 mg/dl (7-24); CHLORIDE 109 mmol/L (98-107); CREATININE 0.89 mg/dL (0.70-1.30); POTASSIUM 3.7 mmol/L (3.5-5.1); SODIUM 143 mmol/L (136-145)
[2018-01-25 08:00] VITALS: BP 170/98
[2018-01-25 12:00] VITALS: BP 124/62
[2018-01-25 16:00] VITALS: BP 139/75
[2018-01-25 20:00] VITALS: BP 154/94
[2018-01-26] VITALS: BP 160/94
[2018-01-26 04:00] VITALS: BP 141/93
[2018-01-26 04:57] LABS: BUN 10 mg/dl (7-24); CHLORIDE 107 mmol/L (98-107); CREATININE 0.91 mg/dL (0.70-1.30); POTASSIUM 3.6 mmol/L (3.5-5.1); SODIUM 142 mmol/L (136-145)
[2018-01-26 06:03] LABS: BASO % 0.6 % (0.0-1.0); EOS # 0.3 10*3/uL (0.0-0.4); EOS % 5.3 % (1.0-4.0); HEMATOCRIT 42.5 % (42.0-52.0); HEMOGLOBIN 14.1 g/dl (14.0-18.0); LYMPH # 1.5 10*3/uL (1.3-4.4); LYMPH % 30.3 % (27.0-41.0); MEAN CELL VOLUME 101.4 fl (80.0-94.0); MEAN CORPUSCULAR HGB 33.7 pg (27.0-31.0); MEAN CORPUSCULAR HGB CONC 33.2 g/dl (33.0-37.0); MEAN PLATELET VOLUME 9.4 fl (9.6-12.3); MONO # 0.5 10*3/uL (0.1-1.0); MONO % 10.7 % (3.0-9.0); NEUT # 2.7 10*3/uL (2.3-7.9); NEUT % 52.9 % (47.0-73.0); PLATELET COUNT AUTOMATED 108 10*3/uL (130-400); RED BLOOD COUNT 4.19 10*6/uL (4.50-5.90); RED CELL DISTRI WIDTH 12.1 % (0-14.5); WHITE BLOOD COUNT 5.1 10*3/uL (4.8-10.8)
[2018-01-26 08:00] VITALS: BP 154/90
[2018-01-26 12:00] VITALS: BP 131/73
[2018-01-26 16:00] VITALS: BP 102/71
[2018-01-26 20:00] VITALS: BP 125/79
[2018-01-27] VITALS: BP 141/84
[2018-01-27 07:15] LABS: BASO % 0.6 % (0.0-1.0); EOS # 0.4 10*3/uL (0.0-0.4); EOS % 5.3 % (1.0-4.0); HEMATOCRIT 46.2 % (42.0-52.0); HEMOGLOBIN 15.1 g/dl (14.0-18.0); LYMPH # 1.9 10*3/uL (1.3-4.4); MEAN CELL VOLUME 102.7 fl (80.0-94.0); MEAN CORPUSCULAR HGB 33.6 pg (27.0-31.0); MEAN CORPUSCULAR HGB CONC 32.7 g/dl (33.0-37.0); MEAN PLATELET VOLUME 9.2 fl (9.6-12.3); MONO # 0.7 10*3/uL (0.1-1.0); NEUT # 3.6 10*3/uL (2.3-7.9); NEUT % 54.8 % (47.0-73.0); PLATELET COUNT AUTOMATED 98 10*3/uL (130-400); RED CELL DISTRI WIDTH 12.2 % (0-14.5); WHITE BLOOD COUNT 6.6 10*3/uL (4.8-10.8)
[2018-01-27 07:30] LABS: BUN 14 mg/dl (7-24); CHLORIDE 104 mmol/L (98-107); CREATININE 1.09 mg/dL (0.70-1.30); POTASSIUM 4.1 mmol/L (3.5-5.1); SODIUM 140 mmol/L (136-145)
[2018-01-27 08:00] VITALS: BP 122/81
[2018-01-27 16:00] VITALS: BP 144/89
[2018-01-27 20:00] VITALS: BP 144/94
[2018-01-28] VITALS: BP 141/87
[2018-01-28 08:00] VITALS: BP 122/69
[2018-01-28 12:00] VITALS: BP 111/71
[2018-01-28 16:00] VITALS: BP 116/67
[2018-01-28 20:00] VITALS: BP 101/64
[2018-01-29 00:40] VITALS: BP 121/67
[2018-01-29 08:00] VITALS: BP 134/80
[2018-01-29] MEDS ORDERED: ATARAX,VISTARIL50 MG PO (09:58)
[2018-01-29] MEDS ORDERED: ZOFRAN 4 MG ED2 TAB PO (09:58)
[2018-01-29] MEDS ORDERED: LISINOPRIL10 M1 PO (09:58)
[2018-01-29 12:00] VITALS: BP 124/69
== END 2018-01-29 13:57 | disposition home or self-care (01) | DRG 309 ==
LOC: ED 23:38 → ICCU 01-24 00:47 → EDHOLD 01-24 00:47 → ICCU 01-24 01:04 → 5E 01-27 13:26
PROVIDERS: Emergency Medicine Emergency Medical Services; Internal Medicine; Student in an Organized Health Care Education/Training Program
DX: R00.0 Tachycardia, unspecified (principal); J98.11 Atelectasis; E83.51 Hypocalcemia; F10.120 Alcohol abuse with intoxication, uncomplicated; R73.9 Hyperglycemia, unspecified; D75.89 Other specified diseases of blood and blood-forming organs; F17.220 Nicotine dependence, chewing tobacco, uncomplicated; I10 Essential (primary) hypertension; D53.9 Nutritional anemia, unspecified; F19.10 Other psychoactive substance abuse, uncomplicated; F32.9 Major depressive disorder, single episode, unspecified; Y90.8 Blood alcohol level of 240 mg/100 ml or more; Z71.6 Tobacco abuse counseling; Z87.898 Personal history of other specified conditions; Z91.81 History of falling; Z90.49 Acquired absence of other specified parts of digestive tract; Z90.89 Acquired absence of other organs; Z82.49 Family history of ischemic heart disease and other diseases of the circulatory system; Z82.0 Family history of epilepsy and other diseases of the nervous system; Z59.0 Homelessness

== ENCOUNTER 2018-05-02 16:39 | Inpatient (IN) | payer SELFPAY ==
[~2018-05-02] VITALS: Ht 190.5 cm; Wt 94.1 kg
--- NOTE | ~2018-05-02 | PR ---
[place], [place] PROGRESS NOTE NAME: BILLIE BARNETT UNIT #: [id number] ROOM: 411 DOCTOR: BRANDI OSWALD DPM BIRTHDATE: [birth year] DOS: 05/05/2018 SUBJECTIVE: The patient was seen for post open reduction internal fixation of the right bimalleolar ankle fracture. The patient is resting comfortably in bed. OBJECTIVE: BK cast intact. Capillary fill time within normal limits. No calf pain noted. No signs of complication. ASSESSMENT: Postop bimalleolar ankle fracture open reduction with internal fixation. PLAN: Evaluation and management. Continue same orders and will reappoint for followup. BRANDI OSWALD DPM CM:JEVON 1057 1740 BRANDI OSWALD DPM 05/05/18 1739 interface
--- NOTE | ~2018-05-02 | WRIGHTHP ---
[place], [place] PATIENT HISTORY AND PHYSICAL EXAM [id number] UNIT #: [id number] ROOM: 411 DOCTOR: CLARK STROUD DPM BIRTHDATE: [birth year] DOS: 05/02/2018 This is a ____. I have reviewed the notes from Dr. Earle Nielson. I did agree with his findings and it appears that the reduction was satisfactory that was done and not maybe to Dr. Nielson's likings and to perfection to his degree; however, there was no fracture, blisters, no ulcers. There is no deformity noted. The surgery went very well. There is good ex-reduction and there were no deficits of the soft tissues or to bone or secondary issues secondary to the reduction. Apparently, in the Emergency Room last night, the patient has a very difficult reduction due to his condition and to the length of this injury, apparently this injury occurred 4 days prior, he had significant amount of edema and this was not treated immediately; therefore, making this reduction, which was attempted in the ER, very difficult and noteworthy, most optimistic reduction; however, it was satisfactory and it worked out well. So this was noticed too as well. Therefore, the patient's expected outcome is no different than as it would have been a complete easy reduction in the Emergency Room. His prognosis is good. CLARK STROUD DPM CM:HISPHYS:PATIENT HISTORY AND PHYSICAL EXAMINATION 1759 1814 CLARK STROUD DPM 05/04/18 1115 interface
--- NOTE | ~2018-05-02 | PR ---
[place], [place] PROGRESS NOTE NAME: BILLIE BARNETT UNIT #: [id number] ROOM: 411 DOCTOR: BRANDI OSWALD DPM BIRTHDATE: [birth year] DOS: 05/08/2018 SUBJECTIVE: The patient is seen post open reduction internal and fixation of right bimalleolar ankle fracture. The patient is resting in bed without acute discomfort. OBJECTIVE: The BK cast intact. Capillary fill time within normal limits. No signs of complication or calf pain. ASSESSMENT: Post-bimalleolar fracture open reduction with internal fixation. PLAN: Continue same orders. The patient is to maintain nonweightbearing. The patient was noted to have some dirt on the bottom of the cast. The patient was advised not to bear weight on the cast. He may be going to [facility] later today and will follow with Dr. Elizabeth at the office. BRANDI OSWALD DPM CM:PNTRANS 1133 1217 BRANDI OSWALD DPM 05/15/18 1105 interface
--- NOTE | ~2018-05-02 | EKG ---
[place], [place] ELECTROCARDIOGRAM REPORT NAME: BILLIE BARNETT UNIT #: [id number] ROOM: 411 DOCTOR: WILBERT DRAFT REPORT BIRTHDATE: [birth year] [facility] Test Date: 2018-05-02 Test Time: 18:03:45 Pat Name: BILLIE BARNETT Department: Room: 411 Gender: M Allergy And Immunology Specialist: EKG.GA : 1955 Requested By: ZAC MCNEAL Order Number: [id number] Reading MD: Hu Barrientos MD Measurements Intervals [place] Rate: 104 P: 72 [place]: 198 QRS: 17 QRSD: 99 T: 43 QT: 358 QTc: 471 Interpretive Statements Sinus tachycardia Multiform ventricular premature complexes Anteroseptal infarct, old Compared to ECG 01/24/2018 00:23:46 Ventricular premature complex(es) now present Myocardial infarct finding still present Electronically Signed On 05-02-2018 18:19:04 PST by Hu Barrientos MD CM:EKGRPT:ELECTROCARDIOGRAM REPORT 02 18 ZAC MCNEAL MD EPIPHSHERIF DRAFT REPORT ZAC MCNEAL MD
--- NOTE | ~2018-05-02 | WRIGHTHP ---
[place], [place] PATIENT HISTORY AND PHYSICAL EXAM NAME: BILLIE BARNETT UNIT #: [id number] ROOM: 411 DOCTOR: CLARK STROUD DPM BIRTHDATE: [birth year] DOS: 05/02/2018 INDICATION NOTE The patient came in to the ER last night and stated that he fractured his ankle a couple of days ago. He admits to having a heavy drinking problem that probably is considered as alcoholic. At this point in time, he is aware of pros, cons, risks and benefits. He has had a previous fracture and injury on his right side but he is aware of pros, cons, risks and benefits. It was discussed with him in the preop holding area about the chance of arthritis ____ arthritis, nonunion, delayed union, malunion, DVT, PE, limb loss, went over to perioperative management, need to be nonweightbearing and compliance. He understands the pros, cons, risks and benefits. He says he understands and agrees. Says he has consented to the surgery, the procedure, the site marking as well as perioperative management and in agreement with that ____ he understands what had gone on and what needs to be done in terms of his left ankle. He signed consent and agreed with the site marking. CLARK STROUD DPM CM:HISPHYS:PATIENT HISTORY AND PHYSICAL EXAMINATION 1632 1655 CLARK STROUD DPM 05/03/18 1716 interface
--- NOTE | ~2018-05-02 | WRIGHTHP ---
[place], [place] PATIENT HISTORY AND PHYSICAL EXAM [id number] UNIT #: [id number] ROOM: 411 DOCTOR: CLARK STROUD DPM BIRTHDATE: [birth year] DOS: 05/02/2018 LOWER EXTREMITY PHYSICAL EXAMINATION: VASCULAR: He has some edema on his left lower extremity. Skin lines are slightly present. There is a lot of ecchymosis, edema and more like a chronic edema as the patient relates that he fractured this earlier in the week and was not taking care of it and stayed at home. So, a Doppler was used preoperatively in the operating room and he had good audible pulses over the Doppler on the DP and PT. On the right, he has good hair growth throughout and good cap refill time throughout. He has a moderate amount of edema on the right lower extremity. 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 DERMATOLOGICAL: No open wounds. SKIN: Intact. No fracture blisters noted. Ecchymosis throughout his hindfoot and ankle. ORTHOPEDIC EXAM: Equivalent to a bimalleolar ankle fracture, distal spiral oblique fracture of the fibula and a complete rupture of medial deltoid ligament. CLARK STROUD DPM CM:HISPHYS:PATIENT HISTORY AND PHYSICAL EXAMINATION 1632 170 CLARK STROUD DPM 05/03/18 1701 interface
--- NOTE | ~2018-05-02 | O ---
[place], [place] OPERATIVE NOTE [facility]: [id number] UNIT #: [id number] ROOM: 411 DOCTOR: CLARK STROUD DPM BIRTHDATE: [birth year] DOS: 05/03/2018 SURGEON: Clark Stroud DPM ASSISTANTS: 1. Dr. Hao Plasencia. 2. Hu Harris, PGY2. PREOPERATIVE DIAGNOSES: 1. Spiral oblique fracture, right distal fibula. 3. Medial deltoid complete rupture of the right medial ankle. POSTOPERATIVE DIAGNOSES: 1. Spiral oblique fracture right distal fibula. 3. Medial deltoid complete rupture of the right medial ankle. PROCEDURE PERFORMED: Open reduction and internal fixation distal fibula, right. Repair of the medial deltoid ligament, right. The patient was seen in preop holding area. Appropriate site marking was performed. Perioperative management and consent and site marking was performed. The patient concurred. He was brought in the OR and placed on well-padded OR table where anesthesia was achieved. Once anesthesia was achieved, his right foot and leg was prepped and draped in usual sterile fashion. Hemostasis accomplished via mid-thigh tourniquet inflated to 300 mmHg. Attention was directed to the fibula where incision was made approximately 10 cm, deepened in the same plane using sharp and blunt dissection, avoiding neurovascular structures, carried down to the bone. Soft tissue was reflected anteriorly and posteriorly. At this time, the fracture fragment was identified. A curette was used to remove the hematoma as well as suction and rongeur. This was flushed with copious amounts of sterile saline, was clamped and rotated and manipulated in place and checked under fluoroscopy. Next, a 3.5 interfrag was used at distal fibula. Next, an In-2 bone plate was used along the distal fibula, combination of nonlocking and locking screws. Next, the syndesmosis was checked under fluoroscopy and this was noted to be negative for syndesmotic injury. The deltoid was stressed and there was noted to be a large gap at the medial deltoid. The alignment of the fibula was good at the length and good apply on the deep tissue was closed with 0 Vicryl and skin was closed with 2-0 nylon. PROCEDURE #2: Repair of the medial deltoid ligament: At this time, a repair of medial deltoid ligament was performed. A curvilinear incision was made over medial deltoids, deepened in the same plane using sharp and blunt dissection, avoiding neurovascular structures. At this time, a significant amount of hematoma was removed and deltoid was shredded and inverted into the joint. This was ____ and it was trimmed back and the hematoma was evacuated and irrigation was used to clean out the area and a medial deltoid ligament was repaired with a ivdqz-ebim-vzvz technique with 0 Vicryl. This was stressed under fluoroscopy, noted to be in much better alignment and more stability noted clinically as well as radiographically. The deep tissues were closed with 0 Vicryl and skin was closed 2-0 nylon. He was anesthetized with 30 mL of 0.5% Marcaine about the [place], [place] OPERATIVE NOTE NAME: BILLIE BARNETT UNIT #: [id number] ROOM: [facility] DOCTOR: CLARK STROUD DPM BIRTHDATE: [birth year] surgical site. Surgical wounds were dressed with Betadine-soaked Adaptic, 4 x 4, Constanza in a sterile compressive fashion. A Univalve BK cast was applied after a Owens type compressive bandage applied. CLARK STROUD DPM CM:OPRECORD:OPERATIVE NOTE 1632 1720 CLARK STROUD DPM 05/04/18 1124 interface
[2018-05-02 16:39] VITALS: BP 173/105
[~2018-05-02 16:39] MED LIST: ATARAX,VISTARIL50 MG PO; LISINOPRIL10 M1 PO; ZOFRAN 4 MG ED2 TAB PO
[2018-05-02 17:46] LABS: BASO # 0.1 10*3/uL (0.0-0.1); BASO % 0.8 % (0.0-1.0); EOS % 0.3 % (1.0-4.0); HEMATOCRIT 43.7 % (42.0-52.0); HEMOGLOBIN 14.8 g/dl (14.0-18.0); LYMPH # 0.9 10*3/uL (1.3-4.4); LYMPH % 9.3 % (27.0-41.0); MEAN CORPUSCULAR HGB 33.2 pg (27.0-31.0); MEAN CORPUSCULAR HGB CONC 33.9 g/dl (33.0-37.0); MONO % 11.2 % (3.0-9.0); NEUT # 7.2 10*3/uL (2.3-7.9); NEUT % 78.2 % (47.0-73.0); PLATELET COUNT AUTOMATED 141 10*3/uL (130-400); RED BLOOD COUNT 4.46 10*6/uL (4.50-5.90); RED CELL DISTRI WIDTH 12.9 % (0-14.5); WHITE BLOOD COUNT 9.2 10*3/uL (4.8-10.8)
[2018-05-02 17:55] LABS: INTERNATIONAL NORM RATIO 0.9 (2.0-3.5)
[2018-05-02 18:00] LABS: ALBUMIN 3.5 gm/dl (3.1-4.5); ALKALINE PHOSPHATASE 92 U/L (45-117); BUN 13 mg/dl (7-24); CHLORIDE 96 mmol/L (98-107); CREATININE 1.02 mg/dL (0.70-1.30); POTASSIUM 3.6 mmol/L (3.5-5.1); SGOT/AST 15 IU/L (3-35); SGPT/ALT 25 U/L (12-78); SODIUM 132 mmol/L (136-145); TOTAL PROTEIN 7.7 gm/dL (6.4-8.2)
[2018-05-02 18:51] VITALS: BP 150/92
[2018-05-02 19:02] VITALS: BP 148/108
[2018-05-02 20:01] VITALS: BP 148/98
[2018-05-02 20:43] VITALS: BP 122/86
[2018-05-02 22:30] LABS: URINE AMPHETAMINES < 1000 (1000ng/ml); URINE BARBITURATES < 200 (200ng/ml); URINE BENZODIAZEPINES < 200 (200ng/ml); URINE CANNABINOIDS (THC) < 50 (50ng/ml); URINE COCAINE < 300 (300ng/ml); URINE METHADONE < 300 (300ng/ml); URINE OPIATES < 300 (300ng/ml); URINE PHENCYCLIDINE < 25 (25ng/ml)
[2018-05-03] VITALS (9 sets, daily range): BP systolic 115–169; BP diastolic 66–102
[2018-05-03 03:23] LABS: BASO % 0.4 % (0.0-1.0); EOS # 0.2 10*3/uL (0.0-0.4); HEMATOCRIT 39.1 % (42.0-52.0); HEMOGLOBIN 13.4 g/dl (14.0-18.0); LYMPH # 1.6 10*3/uL (1.3-4.4); LYMPH % 30.8 % (27.0-41.0); MEAN CELL VOLUME 97.5 fl (80.0-94.0); MEAN CORPUSCULAR HGB 33.4 pg (27.0-31.0); MEAN CORPUSCULAR HGB CONC 34.3 g/dl (33.0-37.0); MEAN PLATELET VOLUME 8.9 fl (9.6-12.3); MONO # 0.6 10*3/uL (0.1-1.0); MONO % 11.1 % (3.0-9.0); NEUT # 2.8 10*3/uL (2.3-7.9); NEUT % 54.5 % (47.0-73.0); PLATELET COUNT AUTOMATED 121 10*3/uL (130-400); RED BLOOD COUNT 4.01 10*6/uL (4.50-5.90); WHITE BLOOD COUNT 5.1 10*3/uL (4.8-10.8)
[2018-05-03 03:40] LABS: ALBUMIN 3.1 gm/dl (3.1-4.5); ALKALINE PHOSPHATASE 76 U/L (45-117); BUN 10 mg/dl (7-24); CHLORIDE 104 mmol/L (98-107); CREATININE 0.82 mg/dL (0.70-1.30); PHOSPHOROUS 2.2 mg/dL (2.5-4.9); POTASSIUM 3.4 mmol/L (3.5-5.1); SGOT/AST 16 IU/L (3-35); SGPT/ALT 25 U/L (12-78); SODIUM 140 mmol/L (136-145); TOTAL PROTEIN 6.7 gm/dL (6.4-8.2)
[2018-05-04] VITALS: BP 151/93
[2018-05-04 06:01] LABS: BASO % 0.1 % (0.0-1.0); HEMATOCRIT 36.6 % (42.0-52.0); HEMOGLOBIN 12.3 g/dl (14.0-18.0); LYMPH # 0.5 10*3/uL (1.3-4.4); LYMPH % 5.7 % (27.0-41.0); MEAN CELL VOLUME 97.9 fl (80.0-94.0); MEAN CORPUSCULAR HGB 32.9 pg (27.0-31.0); MEAN CORPUSCULAR HGB CONC 33.6 g/dl (33.0-37.0); MEAN PLATELET VOLUME 9.6 fl (9.6-12.3); MONO # 0.5 10*3/uL (0.1-1.0); MONO % 6.1 % (3.0-9.0); NEUT # 7.3 10*3/uL (2.3-7.9); NEUT % 87.7 % (47.0-73.0); PLATELET COUNT AUTOMATED 123 10*3/uL (130-400); RED BLOOD COUNT 3.74 10*6/uL (4.50-5.90); RED CELL DISTRI WIDTH 12.9 % (0-14.5); WHITE BLOOD COUNT 8.3 10*3/uL (4.8-10.8)
[2018-05-04 06:06] LABS: BUN 12 mg/dl (7-24); CHLORIDE 104 mmol/L (98-107); CREATININE 0.92 mg/dL (0.70-1.30); POTASSIUM 3.7 mmol/L (3.5-5.1); SODIUM 138 mmol/L (136-145)
[2018-05-04 12:00] VITALS: BP 128/83
[2018-05-04 16:00] VITALS: BP 140/81
[2018-05-04 20:00] VITALS: BP 102/58
[2018-05-05] VITALS: BP 124/72
[2018-05-05 08:20] VITALS: BP 128/82
[2018-05-05 16:00] VITALS: BP 122/86
[2018-05-05 20:00] VITALS: BP 108/57
[2018-05-06] VITALS: BP 97/58
[2018-05-06 07:40] VITALS: BP 110/62
[2018-05-06 08:00] VITALS: BP 118/68
[2018-05-06 12:00] VITALS: BP 129/74
[2018-05-06 16:00] VITALS: BP 133/76
[2018-05-06 20:00] VITALS: BP 141/81
[2018-05-07] VITALS: BP 128/63
[2018-05-07 06:29] LABS: BUN 17 mg/dl (7-24); CHLORIDE 105 mmol/L (98-107); CREATININE 0.83 mg/dL (0.70-1.30); POTASSIUM 3.8 mmol/L (3.5-5.1); SODIUM 139 mmol/L (136-145)
[2018-05-07 06:36] LABS: BASO % 0.6 % (0.0-1.0); EOS # 0.2 10*3/uL (0.0-0.4); HEMATOCRIT 33.6 % (42.0-52.0); HEMOGLOBIN 10.7 g/dl (14.0-18.0); LYMPH # 1.7 10*3/uL (1.3-4.4); LYMPH % 33.8 % (27.0-41.0); MEAN CELL VOLUME 102.8 fl (80.0-94.0); MEAN CORPUSCULAR HGB 32.7 pg (27.0-31.0); MEAN CORPUSCULAR HGB CONC 31.8 g/dl (33.0-37.0); MEAN PLATELET VOLUME 9.7 fl (9.6-12.3); MONO # 0.7 10*3/uL (0.1-1.0); MONO % 13.2 % (3.0-9.0); NEUT # 2.4 10*3/uL (2.3-7.9); PLATELET COUNT AUTOMATED 124 10*3/uL (130-400); RED BLOOD COUNT 3.27 10*6/uL (4.50-5.90); RED CELL DISTRI WIDTH 13.3 % (0-14.5); WHITE BLOOD COUNT 4.9 10*3/uL (4.8-10.8)
[2018-05-07 07:41] VITALS: BP 140/70
[2018-05-07 12:00] VITALS: BP 142/79
[2018-05-07 16:00] VITALS: BP 150/77
[2018-05-07 20:00] VITALS: BP 154/79
[2018-05-08] VITALS: BP 151/83
[2018-05-08 06:02] LABS: BASO % 0.6 % (0.0-1.0); EOS # 0.2 10*3/uL (0.0-0.4); EOS % 4.7 % (1.0-4.0); HEMATOCRIT 35.4 % (42.0-52.0); HEMOGLOBIN 11.4 g/dl (14.0-18.0); LYMPH # 1.6 10*3/uL (1.3-4.4); LYMPH % 34.8 % (27.0-41.0); MEAN CELL VOLUME 100.9 fl (80.0-94.0); MEAN CORPUSCULAR HGB 32.5 pg (27.0-31.0); MEAN CORPUSCULAR HGB CONC 32.2 g/dl (33.0-37.0); MEAN PLATELET VOLUME 9.4 fl (9.6-12.3); MONO # 0.7 10*3/uL (0.1-1.0); MONO % 14.2 % (3.0-9.0); NEUT # 2.1 10*3/uL (2.3-7.9); NEUT % 45.3 % (47.0-73.0); PLATELET COUNT AUTOMATED 127 10*3/uL (130-400); RED BLOOD COUNT 3.51 10*6/uL (4.50-5.90); RED CELL DISTRI WIDTH 13.2 % (0-14.5); WHITE BLOOD COUNT 4.7 10*3/uL (4.8-10.8)
[2018-05-08 08:00] VITALS: BP 108/71
[2018-05-08 12:00] VITALS: BP 128/69
[2018-05-08 16:00] VITALS: BP 157/83
== END 2018-05-08 17:15 | disposition home or self-care (01) | DRG 493 ==
LOC: ED 16:39 → EDHOLD 18:09 → 4E 18:09
PROVIDERS: Emergency Medicine; Internal Medicine; Student in an Organized Health Care Education/Training Program
PROC: 0QSJXZZ Reposition Right Fibula, External Approach (ICD-10-PCS; 2018-05-02)
PROC: 2W3QX1Z Immobilization of Right Lower Leg using Splint (ICD-10-PCS; 2018-05-02)
PROC: 0QSJ04Z Reposition Right Fibula with Internal Fixation Device, Open Approach (ICD-10-PCS; principal; 2018-05-03)
PROC: 0MQQ0ZZ Repair Right Ankle Bursa and Ligament, Open Approach (ICD-10-PCS; principal; 2018-05-03)
DX: S82.431A Displaced oblique fracture of shaft of right fibula, initial encounter for closed fracture (principal); E87.1 Hypo-osmolality and hyponatremia; S82.841A Displaced bimalleolar fracture of right lower leg, initial encounter for closed fracture; R00.0 Tachycardia, unspecified; R06.82 Tachypnea, not elsewhere classified; E83.41 Hypermagnesemia; E87.8 Other disorders of electrolyte and fluid balance, not elsewhere classified; E87.6 Hypokalemia; F10.129 Alcohol abuse with intoxication, unspecified; E83.39 Other disorders of phosphorus metabolism; D69.6 Thrombocytopenia, unspecified; S93.421A Sprain of deltoid ligament of right ankle, initial encounter; D75.89 Other specified diseases of blood and blood-forming organs; I10 Essential (primary) hypertension; R73.03 Prediabetes; F32.9 Major depressive disorder, single episode, unspecified; M19.90 Unspecified osteoarthritis, unspecified site; E66.3 Overweight; X58.XXXA Exposure to other specified factors, initial encounter; Y93.89 Activity, other specified; Y92.89 Other specified places as the place of occurrence of the external cause; Y99.8 Other external cause status; Z87.81 Personal history of (healed) traumatic fracture; Z90.49 Acquired absence of other specified parts of digestive tract; Z87.891 Personal history of nicotine dependence; Z82.49 Family history of ischemic heart disease and other diseases of the circulatory system; Z82.0 Family history of epilepsy and other diseases of the nervous system; Z68.25 Body mass index [BMI] 25.0-25.9, adult

== ENCOUNTER 2018-05-08 22:37 | Emergency (ER) | payer SELFPAY ==
[~2018-05-08] VITALS: Ht 190.5 cm; Wt 99.8 kg
== END 2018-05-09 00:44 | disposition home or self-care (01) ==
LOC: ED 22:37
DX: M79.671 Pain in right foot (principal); M25.571 Pain in right ankle and joints of right foot; R20.2 Paresthesia of skin; R20.0 Anesthesia of skin; Z79.899 Other long term (current) drug therapy; Z90.49 Acquired absence of other specified parts of digestive tract; Z87.891 Personal history of nicotine dependence

== ENCOUNTER 2018-05-11 02:14 | Inpatient (IN) | payer MEDICAID ==
[~2018-05-11] VITALS: Ht 190.5 cm; Wt 98.2 kg
--- NOTE | ~2018-05-11 | CON ---
[place], [place] REPORT OF CONSULTATION NAME: BILLIE BARNETT UNIT #: [id number] ROOM: 425 DOCTOR: BRANDI OSWALD DPM BIRTHDATE: [birth year] DOS: 05/12/2018 SUBJECTIVE: The patient was seen for followup of postop open reduction and internal fixation bimalleolar fracture. The patient was readmitted to the hospital. The patient had an jurcw-tel-irxc cast applied and is being discharged to home. PAST MEDICAL HISTORY: The patient has a history of ankle fracture, alcohol intoxication, alcoholism, essential hypertension, prediabetes, overweight, chews tobacco, tobacco abuse, arthritis, hypokalemia, hyperglycemia, megaloblastic anemia. OBJECTIVE: The qopio-mzu-zkqq cast is intact. Capillary fill time is normal to all digits of the right foot. No calf pain noted. ASSESSMENT: Open reduction and internal fixation of right ankle bimalleolar fracture. PLAN: Discussed with the patient, he is to maintain nonweightbearing status to the right leg. He is being sent home today. Order was written for a walker and a wheelchair for the patient. He will reappoint with Dr. Elizabeth on Monday at the office. BRANDI OSWALD DPM CM:CONSTR:REPORT OF CONSULTATION 1052 05/12/18 2323 interface
[2018-05-11 02:15] VITALS: BP 126/87
[2018-05-11 03:19] LABS: BASO # 0.1 10*3/uL (0.0-0.1); BASO % 1.3 % (0.0-1.0); EOS # 0.3 10*3/uL (0.0-0.4); EOS % 6.8 % (1.0-4.0); HEMATOCRIT 38.7 % (42.0-52.0); HEMOGLOBIN 12.6 g/dl (14.0-18.0); LYMPH # 1.6 10*3/uL (1.3-4.4); LYMPH % 35.3 % (27.0-41.0); MEAN CORPUSCULAR HGB 32.9 pg (27.0-31.0); MEAN CORPUSCULAR HGB CONC 32.6 g/dl (33.0-37.0); MEAN PLATELET VOLUME 8.9 fl (9.6-12.3); MONO # 0.8 10*3/uL (0.1-1.0); MONO % 16.9 % (3.0-9.0); NEUT # 1.8 10*3/uL (2.3-7.9); NEUT % 39.3 % (47.0-73.0); PLATELET COUNT AUTOMATED 164 10*3/uL (130-400); RED BLOOD COUNT 3.83 10*6/uL (4.50-5.90); RED CELL DISTRI WIDTH 13.5 % (0-14.5); WHITE BLOOD COUNT 4.6 10*3/uL (4.8-10.8)
[2018-05-11 03:32] LABS: BUN 10 mg/dl (7-24); CHLORIDE 106 mmol/L (98-107); CREATININE 0.82 mg/dL (0.70-1.30); POTASSIUM 3.9 mmol/L (3.5-5.1); SODIUM 145 mmol/L (136-145)
[2018-05-11 04:06] VITALS: BP 137/87
[2018-05-11 06:30] VITALS: BP 137/80
[2018-05-11 12:00] VITALS: BP 118/70
[2018-05-11 16:00] VITALS: BP 103/55
[2018-05-11] MEDS ORDERED: XARELTO10 MG PO (19:38)
[2018-05-11 20:00] VITALS: BP 149/93
[2018-05-11] MEDS ORDERED: TRAMADOL HCL50 MG PO (20:04)
[2018-05-12] VITALS: BP 158/74
[2018-05-12 06:04] LABS: BASO # 0.1 10*3/uL (0.0-0.1); EOS # 0.2 10*3/uL (0.0-0.4); EOS % 4.9 % (1.0-4.0); HEMATOCRIT 34.5 % (42.0-52.0); HEMOGLOBIN 11.3 g/dl (14.0-18.0); LYMPH # 1.6 10*3/uL (1.3-4.4); MEAN CELL VOLUME 101.2 fl (80.0-94.0); MEAN CORPUSCULAR HGB 33.1 pg (27.0-31.0); MEAN CORPUSCULAR HGB CONC 32.8 g/dl (33.0-37.0); MEAN PLATELET VOLUME 9.3 fl (9.6-12.3); MONO # 0.7 10*3/uL (0.1-1.0); NEUT # 2.3 10*3/uL (2.3-7.9); NEUT % 45.7 % (47.0-73.0); PLATELET COUNT AUTOMATED 151 10*3/uL (130-400); RED BLOOD COUNT 3.41 10*6/uL (4.50-5.90); RED CELL DISTRI WIDTH 13.5 % (0-14.5); WHITE BLOOD COUNT 4.9 10*3/uL (4.8-10.8)
[2018-05-12 06:21] LABS: BUN 14 mg/dl (7-24); CHLORIDE 107 mmol/L (98-107); CREATININE 0.93 mg/dL (0.70-1.30); POTASSIUM 3.8 mmol/L (3.5-5.1); SODIUM 143 mmol/L (136-145)
[2018-05-12 08:22] VITALS: BP 142/72
[2018-05-12] MEDS ORDERED: WALKER DEVI (11:20)
[2018-05-12] MEDS ORDERED: WHEELCHAIR DEVI (11:20)
[2018-05-12 12:00] VITALS: BP 140/81
== END 2018-05-12 14:41 | disposition home or self-care (01) | DRG 948 ==
LOC: ED 02:14 → EDHOLD 05:51 → 4E 05:51
PROVIDERS: Emergency Medicine Emergency Medical Services; Student in an Organized Health Care Education/Training Program
PROC: 2W3NX2Z Immobilization of Right Upper Leg using Cast (ICD-10-PCS; principal; 2018-05-11)
DX: G89.18 Other acute postprocedural pain (principal); M79.671 Pain in right foot; F10.129 Alcohol abuse with intoxication, unspecified; I10 Essential (primary) hypertension; E66.3 Overweight; R73.03 Prediabetes; M19.90 Unspecified osteoarthritis, unspecified site; E83.51 Hypocalcemia; D70.3 Neutropenia due to infection; R73.9 Hyperglycemia, unspecified; D53.1 Other megaloblastic anemias, not elsewhere classified; X58.XXXA Exposure to other specified factors, initial encounter; Y93.89 Activity, other specified; Y92.89 Other specified places as the place of occurrence of the external cause; Z72.0 Tobacco use; Z71.6 Tobacco abuse counseling; Y99.8 Other external cause status; Z90.49 Acquired absence of other specified parts of digestive tract; Z82.49 Family history of ischemic heart disease and other diseases of the circulatory system; Z82.0 Family history of epilepsy and other diseases of the nervous system; Z68.27 Body mass index [BMI] 27.0-27.9, adult

== ENCOUNTER 2018-05-24 09:39 | Inpatient (IN) | payer MEDICAID ==
[~2018-05-24] VITALS: Ht 241.3 cm; Wt 88.2 kg
[2018-05-24 09:39] VITALS: BP 103/69
[~2018-05-24 09:39] MED LIST changes: +HYDROCODONE-AC1 EAC1 PO; +TRAMADOL HCL50 MG PO; +WALKER DEVI; +WHEELCHAIR DEVI; +XARELTO10 MG PO
--- NOTE | 2018-05-24 11:08 | NUR ---
MSADMTime: N A 63 year old MALE admitted to under services of JOHN CALIXTO DO, Pt. arrived via bed from ER. Chief complaint: PAIN RT LEG. MICHOACANO WINTERS
[2018-05-24 11:47] LABS: BASO % 1.1 % (0.0-1.0); EOS # 0.3 10*3/uL (0.0-0.4); EOS % 9.3 % (1.0-4.0); HEMATOCRIT 40.2 % (42.0-52.0); HEMOGLOBIN 13.6 g/dl (14.0-18.0); LYMPH # 1.3 10*3/uL (1.3-4.4); LYMPH % 35.8 % (27.0-41.0); MEAN CELL VOLUME 99.8 fl (80.0-94.0); MEAN CORPUSCULAR HGB 33.7 pg (27.0-31.0); MEAN CORPUSCULAR HGB CONC 33.8 g/dl (33.0-37.0); MEAN PLATELET VOLUME 8.6 fl (9.6-12.3); MONO # 0.4 10*3/uL (0.1-1.0); MONO % 12.1 % (3.0-9.0); NEUT # 1.5 10*3/uL (2.3-7.9); NEUT % 41.4 % (47.0-73.0); PLATELET COUNT AUTOMATED 147 10*3/uL (130-400); RED BLOOD COUNT 4.03 10*6/uL (4.50-5.90); RED CELL DISTRI WIDTH 14.1 % (0-14.5); WHITE BLOOD COUNT 3.6 10*3/uL (4.8-10.8)
[2018-05-24 11:56] LABS: ACT PARTIAL THROMBO TIME 27.1 SECONDS (20.8-31.5)
[2018-05-24 12:00] VITALS: BP 145/87
[2018-05-24 12:07] LABS: ALBUMIN 3.8 gm/dl (3.1-4.5); ALKALINE PHOSPHATASE 97 U/L (45-117); BUN 8 mg/dl (7-24); CHLORIDE 106 mmol/L (98-107); CREATININE 0.89 mg/dL (0.70-1.30); POTASSIUM 3.7 mmol/L (3.5-5.1); SGOT/AST 20 IU/L (3-35); SGPT/ALT 31 U/L (12-78); SODIUM 142 mmol/L (136-145); TOTAL PROTEIN 7.4 gm/dL (6.4-8.2)
--- NOTE | 2018-05-24 13:08 | NUR ---
PHYSICAL THERAPY Unable to evaluate patient this date: patient just admitted and has the following: test result ETOH 295.0 H <3 mg/dl Will attempt at a later date when more appropriate for gait trainging NWB RLE, especially on stairs. Thank you for this referral. Tamika Kaur,PT
[2018-05-24 15:57] LABS: URINE AMPHETAMINES < 1000 (1000ng/ml); URINE BARBITURATES < 200 (200ng/ml); URINE BENZODIAZEPINES < 200 (200ng/ml); URINE CANNABINOIDS (THC) > 50 (50ng/ml); URINE COCAINE < 300 (300ng/ml); URINE METHADONE < 300 (300ng/ml); URINE OPIATES > 300 (300ng/ml)
[2018-05-24 16:00] VITALS: BP 115/68
[2018-05-24 16:00] LABS: URINE PHENCYCLIDINE < 25 (25ng/ml)
--- NOTE | 2018-05-24 16:13 | NUR ---
NORCO GIVEN FOR C/O RT LEG PAIN. RATES 10/10 ON PAIN SCALE. WILL MONITOR.
--- NOTE | 2018-05-24 17:15 | NUR ---
JOSE ANGEL EFFECTIVE PER PT.
[2018-05-24 20:00] VITALS: BP 105/47
[2018-05-25] VITALS: BP 119/58
--- NOTE | 2018-05-25 05:05 | NUR ---
PATIENT RESTING WITH NO S/S OF DISTRESS. BED IN LOWEST POSITION, CALL LIGHT IN REACH
--- NOTE | 2018-05-25 05:44 | NUR ---
PATIENT REFUSING BLOOD WORK
--- NOTE | 2018-05-25 07:45 | NUR ---
PHYSICAL THERAPY PAtient reports he is now living in a home with NO stairs to enter and has a roommate. Patient admitted for SNF placement: however, patient reports to PT and OT (present at PT evaluation) that he is going home, not to SNF. PAtient evaluated on 4, full evaluation to follow. PAtient continues to be noncompliant with PT and medical orders for NWB status, as on multiple prior recent admitts. Attempted to educate, as many times prior, NWB status. PAtient continues to bear weight with transfers and gait. No additonal PT required. PAtient has been extensively educated on NWB status with wh walker and crutches (including stairs on prior admitts). PAtient non copliant by his choice and ETOH abuse. Thank you for this referral. Tamika Kaur,PT
--- NOTE | 2018-05-25 09:00 | NUR ---
case management attempted to visit with patient, patient was sleeping at this time, case management spoke to physical therapy who stated patient declined to work with them today, he stated he would not be going to a SNF and would be going back home, case management also spoke to patient's doctor that patient would be going home today,
--- NOTE | 2018-05-25 09:01 | NUR ---
PT IS BEING DISCHARGED TODAY. PT EDUCATED ON NON-WT. BEARING STATUS. THE IMPORTANCE OF USING HIS WALKER AT HOME. PT ALSO EDUCATED ON THE IMPORTANCE OF TAKING HIS PRESCRIBED MEDICATION (BLOOD THINNERS) TO PREVENT DVT/PE. PT STATED HE HAD HOME HEALTH SET UP, AND THAT HIS FRIEND WILL BE THERE TO HELP HIM NEEDED. PT STATED HE UNDERSTOOD.
--- NOTE | 2018-05-25 09:26 | NUR ---
Patient was evaluated by occupational therapy this date secondary to c/o decreased ability to complete ADL's and maintain NWB status of right LE at home. He was able to complete bedmobility independently. He requires CGA to complete functional transfers with a FWW and required verbal cues to maintain NWB right LE. Despite cues, patient was still unable to maintain NWB status right LE. Continued occupational therapy in a SNF is recommended however patient was declining a rehab placement during evaluation. No further acute OT at this time per patient request. Please re-order OT if patient would like to continue therapy while he is in the hospital. Shy Lei OTR/L
[2018-05-25 10:15] LABS: BASO % 0.8 % (0.0-1.0); EOS # 0.2 10*3/uL (0.0-0.4); EOS % 5.1 % (1.0-4.0); HEMOGLOBIN 12.6 g/dl (14.0-18.0); MEAN CELL VOLUME 100.3 fl (80.0-94.0); MEAN CORPUSCULAR HGB 34.1 pg (27.0-31.0); MEAN CORPUSCULAR HGB CONC 34.1 g/dl (33.0-37.0); MEAN PLATELET VOLUME 9.2 fl (9.6-12.3); MONO # 0.5 10*3/uL (0.1-1.0); MONO % 12.9 % (3.0-9.0); NEUT # 2.3 10*3/uL (2.3-7.9); NEUT % 56.9 % (47.0-73.0); PLATELET COUNT AUTOMATED 124 10*3/uL (130-400); RED BLOOD COUNT 3.69 10*6/uL (4.50-5.90); RED CELL DISTRI WIDTH 14.4 % (0-14.5)
[2018-05-25 10:43] LABS: ALBUMIN 3.1 gm/dl (3.1-4.5); ALKALINE PHOSPHATASE 91 U/L (45-117); BUN 12 mg/dl (7-24); CHLORIDE 108 mmol/L (98-107); CREATININE 1.07 mg/dL (0.70-1.30); PHOSPHOROUS 2.4 mg/dL (2.5-4.9); POTASSIUM 3.6 mmol/L (3.5-5.1); SGOT/AST 14 IU/L (3-35); SGPT/ALT 24 U/L (12-78); SODIUM 143 mmol/L (136-145); TOTAL PROTEIN 6.1 gm/dL (6.4-8.2)
[2018-05-25 16:00] VITALS: BP 134/76
--- NOTE | 2018-05-25 17:41 | NUR ---
CCDIS Discharge instructions reviewed with patient/family. Patient receptive and verbalizes understanding. Follow-up care arranged. Written instructions given to patient/family. MICHOACANO WINTERS
== END 2018-05-25 17:41 | disposition home or self-care (01) | DRG 897 ==
LOC: ED 09:39 → 4E 10:14 → EDHOLD 10:14 → 4E 10:30
PROVIDERS: Emergency Medicine; Registered Nurse; ADMIT Internal Medicine
DX: F10.229 Alcohol dependence with intoxication, unspecified (principal); G89.18 Other acute postprocedural pain; M79.604 Pain in right leg; I10 Essential (primary) hypertension; E66.3 Overweight; F32.9 Major depressive disorder, single episode, unspecified; M19.90 Unspecified osteoarthritis, unspecified site; Y90.8 Blood alcohol level of 240 mg/100 ml or more; E83.51 Hypocalcemia; Z90.49 Acquired absence of other specified parts of digestive tract; Z87.891 Personal history of nicotine dependence; Z82.49 Family history of ischemic heart disease and other diseases of the circulatory system; Z82.0 Family history of epilepsy and other diseases of the nervous system; Z91.19 Patient's noncompliance with other medical treatment and regimen; Z79.01 Long term (current) use of anticoagulants; Z68.1 Body mass index [BMI] 19.9 or less, adult; E83.41 Hypermagnesemia

== ENCOUNTER 2018-05-28 03:03 | Emergency (ER) | payer MEDICAID ==
[~2018-05-28] VITALS: Ht 187.9 cm; Wt 99.8 kg
--- NOTE | ~2018-05-28 | EKG ---
[place], [place] ELECTROCARDIOGRAM REPORT NAME: BILLIE BARNETT UNIT #: [id number] ROOM: DOCTOR: EPIPHANY DRAFT REPORT BIRTHDATE: [birth year] [facility] Test Date: 2018-05-28 Test Time: 07:23:30 Pat Name: BILLIE BARNETT Department: Room: Gender: Social Scientist: LASHONDA : 1955 Requested By: CASS HENSLEY Order Number: [id number] Reading MD: Measurements Intervals [place] Rate: 69 P: [place]: QRS: 45 QRSD: 97 T: 52 QT: 434 QTc: 465 Interpretive Statements Junctional rhythm Compared to ECG 05/02/2018 18:03:45 Junctional rhythm now present Sinus tachycardia no longer present Ventricular premature complex(es) no longer present Myocardial infarct finding no longer present CM:EKGRPT:ELECTROCARDIOGRAM REPORT 0723 0428 CASS BENTON DRAFT REPORT CASS HENSLEY DO
[2018-05-28 07:30] LABS: BILIRUBIN NEGATIVE (NEGATIVE); BLOOD TRACE-INTACT (NEGATIVE); CLARITY CLEAR (CLEAR); COLOR YELLOW (YELLOW); GLUCOSE NEGATIVE (NEGATIVE); KETONE NEGATIVE (NEGATIVE); LEUKO ESTERASE NEGATIVE (NEGATIVE); NITRITE NEGATIVE (NEGATIVE); SPECIFIC GRAVITY <= 1.005 (1.005-1.030); UROBILINOGEN 0.2 E.U./dl (0.2-1.0)
[2018-05-28 07:42] LABS: BASO # 0.1 10*3/uL (0.0-0.1); BASO % 1.1 % (0.0-1.0); EOS # 0.3 10*3/uL (0.0-0.4); EOS % 5.8 % (1.0-4.0); HEMATOCRIT 41.3 % (42.0-52.0); HEMOGLOBIN 13.8 g/dl (14.0-18.0); LYMPH # 1.9 10*3/uL (1.3-4.4); LYMPH % 35.6 % (27.0-41.0); MEAN CELL VOLUME 101.5 fl (80.0-94.0); MEAN CORPUSCULAR HGB 33.9 pg (27.0-31.0); MEAN CORPUSCULAR HGB CONC 33.4 g/dl (33.0-37.0); MEAN PLATELET VOLUME 8.9 fl (9.6-12.3); MONO # 0.6 10*3/uL (0.1-1.0); MONO % 10.8 % (3.0-9.0); NEUT # 2.5 10*3/uL (2.3-7.9); NEUT % 46.7 % (47.0-73.0); PLATELET COUNT AUTOMATED 149 10*3/uL (130-400); RED BLOOD COUNT 4.07 10*6/uL (4.50-5.90); RED CELL DISTRI WIDTH 14.2 % (0-14.5); WHITE BLOOD COUNT 5.4 10*3/uL (4.8-10.8)
[2018-05-28 07:52] LABS: BACTERIA TRACE; EPITHELIAL CELLS 0-2; RBC 0-2 rbc/hpf (0-2); WBC 0-2 wbc/hpf (0-5)
[2018-05-28 08:01] LABS: ALBUMIN 3.5 gm/dl (3.1-4.5); ALKALINE PHOSPHATASE 97 U/L (45-117); BUN 11 mg/dl (7-24); CHLORIDE 107 mmol/L (98-107); CREATININE 0.95 mg/dL (0.70-1.30); POTASSIUM 3.4 mmol/L (3.5-5.1); SGOT/AST 19 IU/L (3-35); SGPT/ALT 29 U/L (12-78); SODIUM 142 mmol/L (136-145); TOTAL PROTEIN 7.1 gm/dL (6.4-8.2)
[2018-05-28 08:03] LABS: TROPONIN I < 0.015 ng/ml (<0.045)
== END 2018-05-28 17:40 | disposition home or self-care (01) ==
LOC: ED 03:03
PROVIDERS: Emergency Medicine
DX: M79.604 Pain in right leg (principal); R26.2 Difficulty in walking, not elsewhere classified; I10 Essential (primary) hypertension; F17.200 Nicotine dependence, unspecified, uncomplicated; Z79.899 Other long term (current) drug therapy; Z90.49 Acquired absence of other specified parts of digestive tract

== ENCOUNTER 2018-08-19 23:03 | Inpatient (IN) | payer OTHER ==
[~2018-08-19] VITALS: Ht 190.5 cm; Wt 100.2 kg
--- NOTE | ~2018-08-19 | CON ---
[place], [place] REPORT OF CONSULTATION NAME: BILLIE BARNETT UNIT #: [id number] ROOM: 416 DOCTOR: STEVE TRINH ED.D (LONG) BIRTHDATE: [birth year] DOS: 08/20/2018 I went to evaluate this patient for possible Behavioral Health Unit admission; however, he had been discharged at home by the hospitalist prior to my evaluation. Thank you for this consult. STEVE TRINH ED.D CM:CONSTR:REPORT OF CONSULTATION 1320 08/20/18 1342 interface
--- NOTE | ~2018-08-19 | EKG ---
[place], [place] ELECTROCARDIOGRAM REPORT NAME: BILLIE BARNETT UNIT #: [id number] ROOM: 416 DOCTOR: WILBERT DRAFT REPORT BIRTHDATE: [birth year] [facility] Test Date: 2018-08-20 Test Time: 05:34:42 Pat Name: BILLIE BARNETT Department: Room: 416 Gender: M Disc Pad Plate Filler: : 1955 Requested By: RIK WARD Order Number: [id number] Reading MD: Tevin Almonte MD Measurements Intervals [place] Rate: 75 P: 23 PA: 235 QRS: 54 QRSD: 99 T: 69 QT: 437 QTc: 489 Interpretive Statements Sinus rhythm Prolonged PA interval Anteroseptal infarct, old Baseline wander in lead(s) V1,V2 Compared to ECG 08/10/2018 19:49:43 First degree AV block now present Atrial fibrillation no longer present Atrial flutter no longer present Myocardial infarct finding still present Electronically Signed On 08-20-2018 9:54:28 PDT by Tevin Almonte MD CM:EKGRPT:ELECTROCARDIOGRAM REPORT [id number] RIK BENTON DRAFT REPORT RIK WARD DO
--- NOTE | ~2018-08-19 | EKG ---
[place], [place] ELECTROCARDIOGRAM REPORT NAME: BILLIE BARNETT UNIT #: [id number] ROOM: 416 DOCTOR: WILBERT DRAFT REPORT BIRTHDATE: [birth year] [facility] Test Date: 2018-08-20 Test Time: 01:48:48 Pat Name: BILLIE BARNETT Department: Room: 416 Gender: M Dot Etcher: BRITTANY RESP : 1955 Requested By: RIK WARD Order Number: [id number] Reading MD: Tevin Almonte MD Measurements Intervals [place] Rate: 74 P: 0 MS: 42006 QRS: 48 QRSD: 102 T: 62 QT: 421 QTc: 467 Interpretive Statements Sinus rhythm prolonged MS interval Anterior infarct, old Baseline wander in lead(s) V4,V6 Compared to ECG 08/10/2018 19:49:43 Short MS interval now present Atrial fibrillation no longer present Atrial flutter no longer present Myocardial infarct finding still present Electronically Signed On 08-20-2018 9:43:27 PDT by Tevin Almonte MD CM:EKGRPT:ELECTROCARDIOGRAM REPORT [id number] RIK BENTON DRAFT REPORT RIK WARD DO
--- NOTE | ~2018-08-19 | EKG ---
[place], [place] ELECTROCARDIOGRAM REPORT NAME: BILLIE BARNETT UNIT #: [id number] ROOM: 416 DOCTOR: WILBERT DRAFT REPORT BIRTHDATE: [birth year] [facility] Test Date: 2018-08-19 Test Time: 23:12:48 Pat Name: BILLIE BARNETT Department: Room: 416 Gender: M Agriculture Research Director: Mukul Landry : 1955 Requested By: RIK WARD Order Number: [id number] Reading MD: Tevin Almonte MD Measurements Intervals [place] Rate: 85 P: [place]: 220 QRS: 26 QRSD: 99 T: 52 QT: 390 QTc: 464 Interpretive Statements Theresa sinus rhythm, 1st degree AV block Probable anteroseptal infarct, old Baseline wander in lead(s) V1,V2,V3,V5 Compared to ECG 08/10/2018 19:49:43 Atrial flutter no longer present Myocardial infarct finding still present Electronically Signed On 08-20-2018 9:36:48 PDT by Tevin Almonte MD Electronically Signed On 08-20-2018 9:38:13 PDT by Tevin Almonte MD CM:EKGRPT:ELECTROCARDIOGRAM REPORT [id number] RIK BENTON DRAFT REPORT RIK WARD DO
[2018-08-19 23:04] VITALS: BP 155/87
[2018-08-19 23:24] LABS: BASO # 0.1 10*3/uL (0.0-0.1); BASO % 0.9 % (0.0-1.0); EOS # 0.1 10*3/uL (0.0-0.4); EOS % 2.1 % (1.0-4.0); HEMATOCRIT 43.7 % (42.0-52.0); HEMOGLOBIN 14.5 g/dl (14.0-18.0); LYMPH % 33.6 % (27.0-41.0); MEAN CELL VOLUME 96.3 fl (80.0-94.0); MEAN CORPUSCULAR HGB 31.9 pg (27.0-31.0); MEAN CORPUSCULAR HGB CONC 33.2 g/dl (33.0-37.0); MEAN PLATELET VOLUME 8.4 fl (9.6-12.3); MONO # 0.6 10*3/uL (0.1-1.0); MONO % 10.3 % (3.0-9.0); NEUT # 3.1 10*3/uL (2.3-7.9); NEUT % 52.8 % (47.0-73.0); PLATELET COUNT AUTOMATED 199 10*3/uL (130-400); RED BLOOD COUNT 4.54 10*6/uL (4.50-5.90); RED CELL DISTRI WIDTH 13.4 % (0-14.5); WHITE BLOOD COUNT 5.8 10*3/uL (4.8-10.8)
[2018-08-19 23:34] LABS: ACT PARTIAL THROMBO TIME 25.5 SECONDS (20.8-31.5)
[2018-08-19 23:47] LABS: ALBUMIN 3.6 gm/dl (3.1-4.5); ALKALINE PHOSPHATASE 98 U/L (45-117); BUN 10 mg/dl (7-24); CHLORIDE 105 mmol/L (98-107); CREATININE 0.98 mg/dL (0.70-1.30); POTASSIUM 3.3 mmol/L (3.5-5.1); SGOT/AST 26 IU/L (3-35); SGPT/ALT 68 U/L (12-78); SODIUM 141 mmol/L (136-145); TOTAL PROTEIN 7.6 gm/dL (6.4-8.2)
[2018-08-19 23:51] LABS: TROPONIN I < 0.015 ng/ml (<0.045)
[2018-08-20 00:08] VITALS: BP 132/87
[2018-08-20 01:02] VITALS: BP 134/96
[2018-08-20 06:21] LABS: BUN 10 mg/dl (7-24); CHLORIDE 108 mmol/L (98-107); CREATININE 0.94 mg/dL (0.70-1.30); PHOSPHOROUS 2.7 mg/dL (2.5-4.9); POTASSIUM 3.4 mmol/L (3.5-5.1); SODIUM 142 mmol/L (136-145)
[2018-08-20 08:00] VITALS: BP 148/88
== END 2018-08-20 10:05 | disposition home or self-care (01) | DRG 194 ==
LOC: ED 23:03 → EDHOLD 08-20 00:07 → 4E 08-20 00:26
PROVIDERS: Student in an Organized Health Care Education/Training Program; ADMIT Internal Medicine
DX: R09.1 Pleurisy (principal); F33.9 Major depressive disorder, recurrent, unspecified; E87.6 Hypokalemia; E87.8 Other disorders of electrolyte and fluid balance, not elsewhere classified; R06.82 Tachypnea, not elsewhere classified; E83.41 Hypermagnesemia; R73.9 Hyperglycemia, unspecified; F10.10 Alcohol abuse, uncomplicated; F19.10 Other psychoactive substance abuse, uncomplicated; I10 Essential (primary) hypertension; F14.10 Cocaine abuse, uncomplicated; F12.10 Cannabis abuse, uncomplicated; R73.03 Prediabetes; M19.90 Unspecified osteoarthritis, unspecified site; D53.9 Nutritional anemia, unspecified; F41.9 Anxiety disorder, unspecified; F17.220 Nicotine dependence, chewing tobacco, uncomplicated; E66.3 Overweight; Z87.81 Personal history of (healed) traumatic fracture; Z90.49 Acquired absence of other specified parts of digestive tract; Z71.6 Tobacco abuse counseling; Z72.89 Other problems related to lifestyle; Z68.27 Body mass index [BMI] 27.0-27.9, adult

== ENCOUNTER 2018-09-27 00:45 | Emergency (ER) | payer OTHER ==
--- NOTE | ~2018-09-27 | EKG ---
[place], [place] ELECTROCARDIOGRAM REPORT NAME: BILLIE BARNETT UNIT #: [id number] ROOM: DOCTOR: EPIPHANY DRAFT REPORT BIRTHDATE: [birth year] [facility] Test Date: 2018-09-27 Test Time: 06:53:56 Pat Name: BILLIE BARNETT Department: Room: Gender: M Innovation Manager: Maureen Og : 1955 Requested By: PATRICK FINLEY Order Number: [id number] Reading MD: Gwendolyn Fan MD Measurements Intervals [place] Rate: 82 P: 46 [place]: 204 QRS: 17 QRSD: 99 T: -27 QT: 410 QTc: 479 Interpretive Statements Sinus rhythm Ventricular premature complex Anteroseptal infarct, old Baseline wander in lead(s) I,III,aVR,aVL,aVF Compared to ECG 08/20/2018 05:34:42 Ventricular premature complex(es) now present First degree AV block no longer present Myocardial infarct finding still present Electronically Signed On 09-28-2018 9:39:37 PDT by Gwendolyn Fan MD CM:EKGRPT:ELECTROCARDIOGRAM REPORT [id number] PATRICK FINLEY MD EPIPHANY DRAFT REPORT PATRICK FINLEY MD
--- NOTE | ~2018-09-27 | EKG ---
[place], [place] ELECTROCARDIOGRAM REPORT NAME: BILLIE BARNETT UNIT #: [id number] ROOM: DOCTOR: EPIPHANY DRAFT REPORT BIRTHDATE: [birth year] [facility] Test Date: 2018-09-27 Test Time: 00:47:34 Pat Name: BILLIE BARNETT Department: ER Room: 5 Gender: M Metal Solderer: : 1955 Requested By: PATRICK FINLEY Order Number: [id number] Reading MD: Gwendolyn Fan MD Measurements Intervals [place] Rate: 107 P: 39 NH: 208 QRS: 30 QRSD: 99 T: 8 QT: 338 QTc: 451 Interpretive Statements Sinus tachycardia Borderline prolonged [place] interval Anteroseptal infarct, old Baseline wander in lead(s) V1 Compared to ECG 08/20/2018 05:34:42 Sinus rhythm no longer present Myocardial infarct finding still present Electronically Signed On 09-28-2018 9:35:38 PDT by Gwendolyn Fan MD CM:EKGRPT:ELECTROCARDIOGRAM REPORT [id number] [id number] PATRICK FINLEY MD EPIPHANY DRAFT REPORT PATRICK FINLEY MD
--- NOTE | ~2018-09-27 | EKG ---
[place], [place] ELECTROCARDIOGRAM REPORT NAME: BILLIE BARNETT UNIT #: [id number] ROOM: DOCTOR: EPIPHANY DRAFT REPORT BIRTHDATE: [birth year] [facility] Test Date: 2018-09-27 Test Time: 03:15:35 Pat Name: BILLIE BARNETT Department: Room: Gender: M Valance Cutter: : 1955 Requested By: PATRICK FINLEY Order Number: [id number] Reading MD: Gwendolyn Fan MD Measurements Intervals [place] Rate: 103 P: 0 OR: 172 QRS: 30 QRSD: 99 T: QT: 353 QTc: 462 Interpretive Statements Sinus tachycardia Ventricular premature complex Anteroseptal infarct, old Nonspecific T abnormalities, lateral leads Compared to ECG 08/20/2018 05:34:42 Ventricular premature complex(es) now present T-wave abnormality now present Sinus rhythm no longer present First degree AV block no longer present Myocardial infarct finding still present Electronically Signed On 09-28-2018 9:37:44 PDT by Gwendolyn Fan MD CM:EKGRPT:ELECTROCARDIOGRAM REPORT [id number] 0937 PATRICK FINLEY MD EPIPHANY DRAFT REPORT PATRICK FINLEY MD
[2018-09-27 01:08] LABS: BASO % 0.6 % (0.0-1.0); EOS # 0.2 10*3/uL (0.0-0.4); EOS % 3.6 % (1.0-4.0); HEMATOCRIT 48.3 % (42.0-52.0); HEMOGLOBIN 16.2 g/dl (14.0-18.0); LYMPH % 32.2 % (27.0-41.0); MEAN CELL VOLUME 98.8 fl (80.0-94.0); MEAN CORPUSCULAR HGB 33.1 pg (27.0-31.0); MEAN CORPUSCULAR HGB CONC 33.5 g/dl (33.0-37.0); MEAN PLATELET VOLUME 8.8 fl (9.6-12.3); MONO # 0.7 10*3/uL (0.1-1.0); MONO % 11.6 % (3.0-9.0); NEUT # 3.3 10*3/uL (2.3-7.9); NEUT % 51.8 % (47.0-73.0); PLATELET COUNT AUTOMATED 149 10*3/uL (130-400); RED BLOOD COUNT 4.89 10*6/uL (4.50-5.90); RED CELL DISTRI WIDTH 14.4 % (0-14.5); WHITE BLOOD COUNT 6.3 10*3/uL (4.8-10.8)
[2018-09-27 01:15] LABS: BILIRUBIN NEGATIVE (NEGATIVE); BLOOD NEGATIVE (NEGATIVE); CLARITY CLEAR (CLEAR); COLOR YELLOW (YELLOW); GLUCOSE NEGATIVE (NEGATIVE); KETONE NEGATIVE (NEGATIVE); LEUKO ESTERASE NEGATIVE (NEGATIVE); NITRITE NEGATIVE (NEGATIVE); PH 5.5 (5.0-9.0); SPECIFIC GRAVITY <= 1.005 (1.005-1.030); UROBILINOGEN 0.2 E.U./dl (0.2-1.0)
[2018-09-27 01:18] LABS: ACT PARTIAL THROMBO TIME 25.5 SECONDS (20.8-31.5); INTERNATIONAL NORM RATIO 0.9 (2.0-3.5)
[2018-09-27 01:22] LABS: BACTERIA TRACE; EPITHELIAL CELLS 0-2; RBC 0-2 rbc/hpf (0-2); WBC 0-2 wbc/hpf (0-5)
[2018-09-27 01:26] LABS: ALBUMIN 4.2 gm/dl (3.1-4.5); ALKALINE PHOSPHATASE 92 U/L (45-117); BUN 7 mg/dl (7-24); CHLORIDE 108 mmol/L (98-107); CREATININE 1.04 mg/dL (0.70-1.30); POTASSIUM 3.8 mmol/L (3.5-5.1); SGOT/AST 26 IU/L (3-35); SGPT/ALT 39 U/L (12-78); SODIUM 141 mmol/L (136-145); TOTAL PROTEIN 8.1 gm/dL (6.4-8.2); TROPONIN I < 0.015 ng/ml (<0.045)
[2018-09-27 01:28] LABS: URINE AMPHETAMINES < 1000 (1000ng/ml); URINE BARBITURATES < 200 (200ng/ml); URINE BENZODIAZEPINES < 200 (200ng/ml); URINE CANNABINOIDS (THC) < 50 (50ng/ml); URINE COCAINE < 300 (300ng/ml); URINE METHADONE < 300 (300ng/ml); URINE OPIATES < 300 (300ng/ml); URINE PHENCYCLIDINE < 25 (25ng/ml)
== END 2018-09-27 17:16 | disposition home or self-care (01) ==
LOC: ED 00:45
PROVIDERS: Emergency Medicine Emergency Medical Services
DX: F10.129 Alcohol abuse with intoxication, unspecified (principal); M79.602 Pain in left arm; I10 Essential (primary) hypertension; M19.90 Unspecified osteoarthritis, unspecified site; F17.220 Nicotine dependence, chewing tobacco, uncomplicated; Y90.9 Presence of alcohol in blood, level not specified

== ENCOUNTER 2018-10-29 03:34 | Emergency (ER) | payer OTHER ==
[~2018-10-29] VITALS: Ht 177.8 cm; Wt 86.2 kg
== END 2018-10-29 07:10 | disposition home or self-care (01) ==
LOC: ED 03:34
DX: S62.291A Other fracture of first metacarpal bone, right hand, initial encounter for closed fracture (principal); I10 Essential (primary) hypertension; M19.90 Unspecified osteoarthritis, unspecified site; Z87.891 Personal history of nicotine dependence; W01.0XXA Fall on same level from slipping, tripping and stumbling without subsequent striking against object, initial encounter; Y93.89 Activity, other specified; Y92.89 Other specified places as the place of occurrence of the external cause; Y99.8 Other external cause status

== ENCOUNTER 2018-11-10 04:47 | Emergency (ER) | payer OTHER ==
[~2018-11-10] VITALS: Ht 177.8 cm; Wt 81.6 kg
[2018-11-10 07:42] LABS: BASO # 0.1 10*3/uL (0.0-0.1); BASO % 1.3 % (0.0-1.0); EOS # 0.2 10*3/uL (0.0-0.4); EOS % 3.3 % (1.0-4.0); HEMOGLOBIN 16.5 g/dl (14.0-18.0); LYMPH % 37.1 % (27.0-41.0); MEAN CELL VOLUME 101.1 fl (80.0-94.0); MEAN CORPUSCULAR HGB 34.7 pg (27.0-31.0); MEAN CORPUSCULAR HGB CONC 34.4 g/dl (33.0-37.0); MEAN PLATELET VOLUME 9.1 fl (9.6-12.3); MONO # 0.7 10*3/uL (0.1-1.0); MONO % 12.2 % (3.0-9.0); NEUT # 2.5 10*3/uL (2.3-7.9); NEUT % 45.7 % (47.0-73.0); PLATELET COUNT AUTOMATED 138 10*3/uL (130-400); RED BLOOD COUNT 4.75 10*6/uL (4.50-5.90); RED CELL DISTRI WIDTH 12.6 % (0-14.5); WHITE BLOOD COUNT 5.5 10*3/uL (4.8-10.8)
[2018-11-10 07:56] LABS: ALBUMIN 4.1 gm/dl (3.1-4.5); ALKALINE PHOSPHATASE 82 U/L (45-117); BUN 10 mg/dl (7-24); CHLORIDE 104 mmol/L (98-107); CREATININE 1.01 mg/dL (0.70-1.30); POTASSIUM 3.6 mmol/L (3.5-5.1); SGOT/AST 26 IU/L (3-35); SGPT/ALT 34 U/L (12-78); SODIUM 139 mmol/L (136-145); TOTAL PROTEIN 8.1 gm/dL (6.4-8.2)
== END 2018-11-10 08:44 | disposition left against medical advice (07) ==
LOC: ED 04:47
PROVIDERS: Emergency Medicine
DX: S09.90XA Unspecified injury of head, initial encounter (principal); I10 Essential (primary) hypertension; M19.90 Unspecified osteoarthritis, unspecified site; Z87.891 Personal history of nicotine dependence; W22.8XXA Striking against or struck by other objects, initial encounter; Y93.01 Activity, walking, marching and hiking; Y92.488 Other paved roadways as the place of occurrence of the external cause; Y99.8 Other external cause status

== ENCOUNTER 2018-12-28 17:19 | Inpatient (IN) | payer OTHER ==
[~2018-12-28] VITALS: Ht 187.9 cm; Wt 95.0 kg
--- NOTE | ~2018-12-28 | CON ---
[place], [place] REPORT OF CONSULTATION [id number] UNIT #: [id number] ROOM: 525 DOCTOR: EDDIE YUSUF MD BIRTHDATE: [birth year] DOS: 12/29/2018 ORTHOPEDIC CONSULT WHAT: Left knee. HOW: Insidious. WHEN: Over the last 4 decades. WHERE: At home/riding horses, various locations. HISTORY OF PRESENT ILLNESS: This is a 63-year-old gentleman with history of injury in 1983 when he was thrown from a bare back horse. The patient sustained a left knee injury that was never "checked out." The patient notes that he has chronic instability in the knee with chronic pain and swelling. Over the last three weeks, he has had more evidence of falls. The patient is known by the medical service here. He has chronic alcohol abuse history. The patient states he does take Aleve from time to time for the left knee. He is not wearing a brace. He is not using crutches. He lives upstairs. He has difficulty going up and down stairs. He gave history in the Emergency Room of a fall from a 6-foot deck yesterday. At that time, he scraped his knee. The Emergency Room worked him up for multiple aches and pains. His CT scan of the left knee revealed a possible proximal tibia fracture. I was contacted at approximately midnight, about the possibility of seeing him today in consultation. I recommended he be placed into an Dorian wrap, knee immobilizer and kept nonweightbearing until I could evaluate him. MEDICATIONS ON ADMISSION: Please see H and P. ALLERGIES: None. PRIOR SURGERY: Appendectomy, back surgery, left knee surgery, ORIF of ankles, tonsillectomy. PAST MEDICAL HISTORY: History of noncompliance and alcoholism. SOCIAL HISTORY: The patient lives alone. He is a drinker. Some history in his H and P of prior cocaine abuse and being a former cigarette smoker. REVIEW OF SYSTEMS: Noncontributory. PHYSICAL EXAMINATION: VITAL SIGNS: Stable and he is afebrile. LEFT KNEE: Left knee has a 1+ to 2+ effusion present with mild swelling and no gross deformity. Multiple abrasions are present over the anterior left knee as well as the proximal tibia of various chronicity. The most recent abrasion appears to be over the proximal left tibia approximately 15 cm distal to the joint. Left knee exam shows active range of motion from 0-90 degrees with pain and difficulty with flexion beyond 90 degrees. Stability testing shows a [place], [place] REPORT OF CONSULTATION NAME: BILLIE BARNETT UNIT #: [id number] ROOM: [facility] DOCTOR: EDDIE YUSUF MD BIRTHDATE: [birth year] positive posterior drawer as well as a positive posterolateral spin sign. Anterior drawer is questionable. Varus and valgus stress test shows grade 2 instability of both medial and lateral collateral ligaments at 20 degrees, but no instability at 0 degrees. Quad tone is diminished. Frankly, I cannot visualize significant scarring today. Gait was not tested. Neurovascular status is intact. IMAGING: Radiographs from last evening were reviewed and show osteoarthritic changes of tricompartmental nature with a small line in the region of the proximal tibia posteriorly, which may or may not represent an acute fracture. The most remarkable finding on his CT scan is the presence of tricompartmental arthritis. IMPRESSION: Tricompartmental osteoarthritis, left knee. RECOMMENDATIONS: I recommend the patient be placed into an Dorian wrap with knee immobilizer over and kept nonweightbearing until we can obtain an MRI scan of his left knee. He may choose to use quom-clw-shxdmms anti-inflammatories, but should not exceed a prescription dose of the medications. The above recommendations were discussed with Dr. Purdy over the phone. The patient does not need to remain in the hospital to accomplish the above, from an orthopedic standpoint. Unfortunately, physical therapy may not be available this weekend, and he may even need to be seen prior to dismissal. I will sign off of the patient's case and we will see him on a p.r.n. basis. He was advised to contact our office on Monday morning regarding the MRI scan. EDDIE YUSUF MD CM:CONSTR:REPORT OF CONSULTATION 1036 12/29/18 1225 interface
--- NOTE | ~2018-12-28 | EKG ---
[place], [place] ELECTROCARDIOGRAM REPORT NAME: BILLIE BARNETT UNIT #: [id number] ROOM: [facility] DOCTOR: WILBERT DRAFT REPORT BIRTHDATE: [birth year] [facility] Test Date: 2018-12-29 Test Time: 01:30:29 Pat Name: BILLIE BARNETT Department: Room: [facility] 1 Gender: M Ground Hand: Ekaterina Quispe : 1955 Requested By: CYNTHIA MAJANO Order Number: [id number] Reading MD: Gwendolyn Fan MD Measurements Intervals [place] Rate: 64 P: 40 NM: 240 QRS: 33 QRSD: 101 T: 20 QT: 441 QTc: 455 Interpretive Statements Sinus rhythm Sinus pause Prolonged [place] interval Probable anteroseptal infarct, old Baseline wander in lead(s) V3 Compared to ECG 09/27/2018 06:53:56 Sinus pause or arrest now present First degree AV block now present Ventricular premature complex(es) no longer present Myocardial infarct finding still present Electronically Signed On 12-30-2018 6:51:07 PDT by Gwendolyn Fan MD CM:EKGRPT:ELECTROCARDIOGRAM REPORT [id number] 0651 CYNTHIA ATKINS DRAFT REPORT CYNTHIA MAJANO
--- NOTE | ~2018-12-28 | EKG ---
[place], [place] ELECTROCARDIOGRAM REPORT NAME: BILLIE BARNETT UNIT #: [id number] ROOM: [facility] DOCTOR: WILBERT DRAFT REPORT BIRTHDATE: [birth year] [facility] Test Date: 2018-12-29 Test Time: 07:06:20 Pat Name: BILLIE BARNETT Department: Room: [facility] 1 Gender: M Gear Repair Supervisor: 18 H18 : 1955 Requested By: CYNTHIA MAJANO Order Number: [id number] Reading MD: Gwendolyn Fan MD Measurements Intervals [place] Rate: 60 P: 37 DC: 214 QRS: 38 QRSD: 100 T: 44 QT: 443 QTc: 443 Interpretive Statements Sinus rhythm Multiple premature complexes, vent \T\ supraven Borderline prolonged [place] interval Compared to ECG 09/27/2018 06:53:56 Ventricular premature complex(es) no longer present Myocardial infarct finding no longer present Electronically Signed On 12-30-2018 6:51:35 PDT by Gwendolyn Fan MD CM:EKGRPT:ELECTROCARDIOGRAM REPORT [id number] [id number] CYNTHIA MAJANO EPIPHANY DRAFT REPORT CYNTHIA MAJANO
--- NOTE | ~2018-12-28 | EKG ---
[place], [place] ELECTROCARDIOGRAM REPORT NAME: BILLIE BARNETT UNIT #: [id number] ROOM: 525 DOCTOR: WILBERT DRAFT REPORT BIRTHDATE: [birth year] [facility] Test Date: 2018-12-29 Test Time: 03:44:26 Pat Name: BILLIE BARNETT Department: Room: [facility] 1 Gender: M Rn Transport: Ekaterina Quispe : 1955 Requested By: CYNTHIA MAJANO Order Number: [id number] Reading MD: Gwendolyn Fan MD Measurements Intervals [place] Rate: 68 P: 37 [place]: 251 QRS: 59 QRSD: 101 T: 42 QT: 466 QTc: 496 Interpretive Statements Sinus rhythm Ventricular premature complex Prolonged [place] interval Anteroseptal infarct, old Baseline wander in lead(s) V3 Compared to ECG 09/27/2018 06:53:56 First degree AV block now present Myocardial infarct finding still present Electronically Signed On 12-30-2018 6:51:28 PDT by Gwendolyn Fan MD CM:EKGRPT:ELECTROCARDIOGRAM REPORT [id number] 0651 CYNTHIA ATKINS DRAFT REPORT CYNTHIA MAJANO
[2018-12-28 17:27] VITALS: BP 108/66
--- NOTE | 2018-12-28 17:47 | NUR ---
PT TRYING TO TAKE BACK BOARD AND C COLLAR OFF, RN EXPLAINED TO PT HE CAN NOT TAKE THEM OFF UNTIL AFTER THE X RAY AND CT SCAN RESULTS. PT VOICED UNDERSTANDING BUT STILL TRYING TO REMOVE.
--- NOTE | 2018-12-28 17:52 | NUR ---
PT YELLING OUT AND RN WENT TO ROOM AND PT THREW C COLLAR ON FLOOR AND TOOK OFF THE BACK BOARD. PT STATES "I AM NOT PUTTING THAT F------ THING BACK ON. WILL CONTINUE TO MONITOR.
[2018-12-28 18:18] LABS: BASO % 0.5 % (0.0-1.0); EOS # 0.1 10*3/uL (0.0-0.4); EOS % 2.4 % (1.0-4.0); HEMATOCRIT 41.2 % (42.0-52.0); HEMOGLOBIN 13.8 g/dl (14.0-18.0); LYMPH % 25.1 % (27.0-41.0); MEAN CELL VOLUME 102.2 fl (80.0-94.0); MEAN CORPUSCULAR HGB 34.2 pg (27.0-31.0); MEAN CORPUSCULAR HGB CONC 33.5 g/dl (33.0-37.0); MONO # 0.5 10*3/uL (0.1-1.0); MONO % 12.2 % (3.0-9.0); NEUT # 2.4 10*3/uL (2.3-7.9); NEUT % 59.3 % (47.0-73.0); PLATELET COUNT AUTOMATED 109 10*3/uL (130-400); RED BLOOD COUNT 4.03 10*6/uL (4.50-5.90); RED CELL DISTRI WIDTH 12.5 % (0-14.5); WHITE BLOOD COUNT 4.1 10*3/uL (4.8-10.8)
[2018-12-28 18:29] LABS: ACT PARTIAL THROMBO TIME 25.4 SECONDS (20.0-32.1)
[2018-12-28 18:34] LABS: ALBUMIN 3.7 gm/dl (3.1-4.5); ALKALINE PHOSPHATASE 73 U/L (45-117); BUN 7 mg/dl (7-24); CHLORIDE 108 mmol/L (98-107); CREATININE 0.97 mg/dL (0.70-1.30); POTASSIUM 3.3 mmol/L (3.5-5.1); SGOT/AST 25 IU/L (3-35); SGPT/ALT 30 U/L (12-78); SODIUM 138 mmol/L (136-145); TOTAL PROTEIN 7.1 gm/dL (6.4-8.2)
[2018-12-28 18:40] VITALS: BP 170/92
[2018-12-28 19:07] LABS: BILIRUBIN NEGATIVE (NEGATIVE); BLOOD NEGATIVE (NEGATIVE); CLARITY CLEAR (CLEAR); COLOR YELLOW (YELLOW); GLUCOSE NEGATIVE (NEGATIVE); KETONE NEGATIVE (NEGATIVE); LEUKO ESTERASE NEGATIVE (NEGATIVE); NITRITE NEGATIVE (NEGATIVE); PH 5.5 (5.0-9.0); SPECIFIC GRAVITY <= 1.005 (1.005-1.030); UROBILINOGEN 0.2 E.U./dl (0.2-1.0)
[2018-12-28 19:15] LABS: BACTERIA 1+; WBC 0-2 wbc/hpf (0-5)
--- NOTE | 2018-12-29 00:25 | NUR ---
A 63, admitted to , under the services of RADHA Franks DO with a diagnosis of AMB DYSFUNCTION,KNEE FRACTURE. Chief complaint is STATED HE FELL OFF DECK AFTER HE HAD HIS HAIR CUT. Patient arrived via CART WITH RN from ER. Monitor applied. Initial assessment completed. Vital signs taken and recorded. RADHA FRANKS DO notified of admission to the unit. Orders received. See assessment for past medical history, medications and allergies. Patient and/or family oriented to unit. [facility] visitation policy reviewed. Clothing/patient valuable form completed. GUCCI MAHONEY
--- NOTE | 2018-12-29 01:00 | NUR ---
PATIENT STATED THAT HE TAKES NO HOME MEDS.
[2018-12-29 01:24] VITALS: BP 147/76
--- NOTE | 2018-12-29 02:10 | NUR ---
PATIENT MEDICATED WITH NORCOFOR C/O L. KNEE PAIN. RATED PAIN A 8/10 WITH 10 BEING THE WORST.
[2018-12-29 04:13] LABS: BASO % 0.4 % (0.0-1.0); EOS # 0.1 10*3/uL (0.0-0.4); EOS % 2.4 % (1.0-4.0); HEMATOCRIT 38.6 % (42.0-52.0); HEMOGLOBIN 12.9 g/dl (14.0-18.0); LYMPH # 1.2 10*3/uL (1.3-4.4); LYMPH % 23.7 % (27.0-41.0); MEAN CELL VOLUME 102.7 fl (80.0-94.0); MEAN CORPUSCULAR HGB 34.3 pg (27.0-31.0); MEAN CORPUSCULAR HGB CONC 33.4 g/dl (33.0-37.0); MEAN PLATELET VOLUME 8.4 fl (9.6-12.3); MONO # 0.7 10*3/uL (0.1-1.0); MONO % 13.9 % (3.0-9.0); NEUT % 59.4 % (47.0-73.0); PLATELET COUNT AUTOMATED 90 10*3/uL (130-400); RED BLOOD COUNT 3.76 10*6/uL (4.50-5.90); RED CELL DISTRI WIDTH 12.5 % (0-14.5)
[2018-12-29 04:21] LABS: URINE AMPHETAMINES < 1000 (1000ng/ml); URINE BARBITURATES < 200 (200ng/ml); URINE BENZODIAZEPINES < 200 (200ng/ml); URINE CANNABINOIDS (THC) < 50 (50ng/ml); URINE COCAINE < 300 (300ng/ml); URINE METHADONE < 300 (300ng/ml); URINE OPIATES > 300 (300ng/ml)
[2018-12-29 04:26] LABS: URINE PHENCYCLIDINE < 25 (25ng/ml)
[2018-12-29 04:26] LABS: ALBUMIN 3.3 gm/dl (3.1-4.5); ALKALINE PHOSPHATASE 68 U/L (45-117); BUN 7 mg/dl (7-24); CHLORIDE 105 mmol/L (98-107); CREATININE 0.84 mg/dL (0.70-1.30); PHOSPHOROUS 3.1 mg/dL (2.5-4.9); POTASSIUM 3.3 mmol/L (3.5-5.1); SGOT/AST 24 IU/L (3-35); SGPT/ALT 28 U/L (12-78); SODIUM 136 mmol/L (136-145); TOTAL PROTEIN 6.4 gm/dL (6.4-8.2)
[2018-12-29 04:27] LABS: FREE T4 0.92 ng/dl (0.76-1.46)
[2018-12-29 06:53] LABS: VITAMIN D, 25-HYDROXY 19.8 ng/mL (30-100)
--- NOTE | 2018-12-29 07:05 | NUR ---
PATIENT MEDICATED WITH NORCO PER PRN ORDER FOR C/O ALL OVER PAIN. RATEDPAIN 7-8/10 WITH 10 BEING THE WORST.SEE EMAR. REINFORCED USE OF CALL LIGHT.
[2018-12-29 08:00] VITALS: BP 152/84
--- NOTE | 2018-12-29 08:00 | NUR ---
ASSESSMENT COMPLETE. PT STATES PAIN IN LEFT KNEE, STATES SCABS TO LEFT KNEE ARE FROM A FALL LAST WEEK, ABRASION TO LEFT DENNEY FROM FALL 12/28/18 PRIOR TO COMING IN . PT STATES THAT HE HAS HAD CHEST PAIN WITH DEEP BREATH OR COUGHING ON AND OFF FOR THE LAST MONTH HOWEVER, IS NOT EXPERIENCING ANY CHEST DISCOMFORT AT THIS TIME, AWARE TO NOTIFY STAFFING IF CHEST PAIN RETURNS OR PATIENT BECOMES SHORT OF BREATH
--- NOTE | 2018-12-29 08:05 | NUR ---
NORCO SLIGHTLY EFFECTIVE, PT REQUEST NO OTHER MEDICATION FOR PAIN AT THIS TIME
--- NOTE | 2018-12-29 09:48 | NUR ---
DR. YUSUF, ORTHO IN TO SEE PATIENT. HE DISCUSS CASE WITH PRIMARY CARE TEAM
--- NOTE | 2018-12-29 09:57 | NUR ---
EDUCATED ON MEDICATIONS, AWARE NO WEIGHT BEARING LEFT LEG.
--- NOTE | 2018-12-29 11:27 | NUR ---
PT STATES PAIN LEFT KNEE 02/05, NORCO GIVEN
[2018-12-29 12:00] VITALS: BP 117/52
--- NOTE | 2018-12-29 12:59 | NUR ---
PT SLEEPING, MEDICATION SEEMS TO BE EFFECTIVE.
[2018-12-29 16:00] VITALS: BP 109/66
--- NOTE | 2018-12-29 16:38 | NUR ---
PT REFUSING LEFT KNEE EMOBILIZER AND JOYCE BANDAGE AT THIS TIME
--- NOTE | 2018-12-29 17:45 | NUR ---
NORCO EFFECTIVE FOR PAIN
[2018-12-29 20:00] VITALS: BP 153/83
--- NOTE | 2018-12-29 21:02 | NUR ---
PATIENT MEDICATED WITH NORCO PER PRN ORDER FOR C/O ALL OVER PAIN. RATED PAIN A 9/10 WITH 10 BEING THE WORST. SEE EMAR. REINFORCED USE OF CALL LIGHT.
--- NOTE | 2018-12-29 22:15 | NUR ---
PATIENT RESTING COMFORTABLY. NO FURTHER C/O VOICED.
--- NOTE | 2018-12-29 23:20 | NUR ---
PATIENT MEDICATED WITH TRAZODONE AND SENNAKOT PER PRN ORDER FOR PATIENT INSOMNIA AND NEED FOR STOOL SOFTNER. SEE EMAR. REINFORCED USE OF CALL LIGHT.
[2018-12-30] VITALS: BP 154/80
--- NOTE | 2018-12-30 00:45 | NUR ---
24 HR chart check completed.
--- NOTE | 2018-12-30 04:08 | NUR ---
PATIENT MEDICATED WITH NORCO PER PRN ORDER FOR C/O ALL OVER PAIN . RATED PAIN A 10/10 WITH 10 BEING THE WORST. SEE EMAR. REINFORCED USE OF CALL LIGHT
[2018-12-30 06:37] LABS: BASO % 0.7 % (0.0-1.0); EOS # 0.2 10*3/uL (0.0-0.4); EOS % 3.5 % (1.0-4.0); HEMATOCRIT 44.1 % (42.0-52.0); HEMOGLOBIN 14.2 g/dl (14.0-18.0); LYMPH # 1.3 10*3/uL (1.3-4.4); LYMPH % 27.5 % (27.0-41.0); MEAN CELL VOLUME 104.5 fl (80.0-94.0); MEAN CORPUSCULAR HGB 33.6 pg (27.0-31.0); MEAN CORPUSCULAR HGB CONC 32.2 g/dl (33.0-37.0); MEAN PLATELET VOLUME 9.3 fl (9.6-12.3); MONO # 0.7 10*3/uL (0.1-1.0); MONO % 15.2 % (3.0-9.0); NEUT # 2.4 10*3/uL (2.3-7.9); NEUT % 52.9 % (47.0-73.0); PLATELET COUNT AUTOMATED 105 10*3/uL (130-400); RED BLOOD COUNT 4.22 10*6/uL (4.50-5.90); RED CELL DISTRI WIDTH 12.5 % (0-14.5); WHITE BLOOD COUNT 4.6 10*3/uL (4.8-10.8)
[2018-12-30 06:47] LABS: ALBUMIN 3.5 gm/dl (3.1-4.5); ALKALINE PHOSPHATASE 96 U/L (45-117); BUN 11 mg/dl (7-24); CHLORIDE 107 mmol/L (98-107); CREATININE 1.02 mg/dL (0.70-1.30); POTASSIUM 3.7 mmol/L (3.5-5.1); SGOT/AST 20 IU/L (3-35); SGPT/ALT 28 U/L (12-78); SODIUM 140 mmol/L (136-145); TOTAL PROTEIN 7.1 gm/dL (6.4-8.2)
[2018-12-30 08:00] VITALS: BP 153/95
--- NOTE | 2018-12-30 08:26 | NUR ---
pt complain of pain left knee 01/05, norco given. see emar. will monitor for effectiveness. pt wearing dahiana to left knee, refuses imoblizer, aware no weight bearing to left leg
--- NOTE | 2018-12-30 09:20 | NUR ---
norco effective for pain
--- NOTE | 2018-12-30 10:00 | NUR ---
PHYSICAL THERAPY PT ARNOLD COMPLETED TODAY ON LEVEL 5: FULL EVALUATION TO FOLLOW. RECOMMEND PT WHILE HERE IN HOSPITAL FOR GAIT AND STAIR TRAINING. ORTHO HAS ORDERED NWB AND KNEE IMMOBILIZER TO THE LLE HOWEVER PATIENT IS REFUSING IMMOBILIZER AND BEING NON COMPLIANT WITH NWB ON THE LLE. HE DID ALLOW ME TO APPLY THE KNEE IMMOBILIZER TODAY FOR THE STAIR TRAINING BUT DEMANDED I TAKE IT OFF AFTERWARDS. HE HAS 20 PLUS STEPS TO HIS APARTMENT. WAS ABLE TO DO 5 STEPS TODAY WITH SHR AND 1 CRUTCH WITH MIN OF 1 BUT UNABLE TO MAINTAIN NWB ON THE LLE. D/C REC: REFUSING SNF : STATES HE IS GOING HOME AND IS WILLING TO HAVE HOME HEALTH. PT EVAL IS MODERATE COMPLEXITY BASED ON CHART REVIEW, TEST RESULTS AND EVALUATION: [id number]. THANK YOU FOR REFERRAL HERRERA LAURA PT
[2018-12-30 12:00] VITALS: BP 156/76
--- NOTE | 2018-12-30 12:40 | NUR ---
pt complain of left knee pain 02/05, norco given
--- NOTE | 2018-12-30 13:49 | NUR ---
pt sleeping, no distress noted
[2018-12-30 16:00] VITALS: BP 157/90
--- NOTE | 2018-12-30 16:35 | NUR ---
PT STATES PAIN LEFT KNEE, SHOULDER AND NECK PAIN 9/10, NORCO GIVEN. WILL MONITOR FOR EFFECTIVENESS
--- NOTE | 2018-12-30 18:59 | NUR ---
iv hydralizine given for elevated blood pressure, pt understands medication. will report to next shift to monitor blood pressure
--- NOTE | 2018-12-30 19:00 | NUR ---
BEDSIDE REPORT OBTAINED FROM HARRIETT-KOFI. PATIENT IS RESTING IN BED, EYES CLSOED. NO DISTRESS NOTED RESP ARE ERND ON ROOM AIR. BED IS LOCKED IN LOWEST POSITION, CALL LIGHT WITHIN REACH.
--- NOTE | 2018-12-30 19:14 | NUR ---
pt continues to refuse dahiana wrap and immobilizer
[2018-12-30 20:00] VITALS: BP 123/66
--- NOTE | 2018-12-30 21:00 | NUR ---
PATIENT EDUCATED ON IMPORTANCE OF NWB TO LLE AND USE OF IMMOBILIZER. PATIENT STATES UNDERSTANDIN BUT REFUSES TO COOPERATE WITH ORDERS, REFUSING JOYCE WRAP AND IMMOBILIZER AT THIS TIME.
--- NOTE | 2018-12-30 21:24 | NUR ---
PATIENT MEDICATED WITH NORCO FOR C/O L KNEE PAIN 01/05. WILL MONITOR
--- NOTE | 2018-12-30 22:24 | NUR ---
NORCO APPEARS EFFECTIVE. PATIENT RESTING IN BED, EYES CLOSED. NO DISTRESS NOTED. CALL LIGHT WITHIN REACH
[2018-12-31] VITALS: BP 130/85
--- NOTE | 2018-12-31 01:30 | NUR ---
MEDICATED WITH NORCO PER PRN ORDER FOR COMPLAINTS PAIN TO RIGHT KNEE, NECK AND HEAD RATING A 10. CALL LIGHT WITHIN REACH. WILL MONITOR FOR EFFECTIVENESS
--- NOTE | 2018-12-31 01:35 | NUR ---
C/O INABILITY TO SLEEP, PROVIDED WITH TRAZADONE PER PRN ORDER. ALSO REQUESTED AND RECEIVED MOM TO ASSIST WITH NO BM X "A COUPLE DAYS." WILL MONITOR
--- NOTE | 2018-12-31 01:51 | NUR ---
24 HR chart check completed.
--- NOTE | 2018-12-31 05:24 | NUR ---
PATIENT MEDICATED WITH NORCO FOR C/O 8/ GENERALIZED PAIN. WILL MONITOR
[2018-12-31 06:43] LABS: BASO % 0.9 % (0.0-1.0); EOS # 0.2 10*3/uL (0.0-0.4); EOS % 3.5 % (1.0-4.0); HEMATOCRIT 43.1 % (42.0-52.0); HEMOGLOBIN 14.2 g/dl (14.0-18.0); LYMPH # 1.3 10*3/uL (1.3-4.4); LYMPH % 30.4 % (27.0-41.0); MEAN CELL VOLUME 101.9 fl (80.0-94.0); MEAN CORPUSCULAR HGB 33.6 pg (27.0-31.0); MEAN CORPUSCULAR HGB CONC 32.9 g/dl (33.0-37.0); MEAN PLATELET VOLUME 9.5 fl (9.6-12.3); MONO # 0.6 10*3/uL (0.1-1.0); MONO % 14.7 % (3.0-9.0); NEUT # 2.2 10*3/uL (2.3-7.9); NEUT % 50.5 % (47.0-73.0); PLATELET COUNT AUTOMATED 125 10*3/uL (130-400); RED BLOOD COUNT 4.23 10*6/uL (4.50-5.90); RED CELL DISTRI WIDTH 12.4 % (0-14.5); WHITE BLOOD COUNT 4.3 10*3/uL (4.8-10.8)
[2018-12-31 07:22] LABS: BUN 12 mg/dl (7-24); CHLORIDE 107 mmol/L (98-107); POTASSIUM 3.7 mmol/L (3.5-5.1); SODIUM 140 mmol/L (136-145)
[2018-12-31 07:25] LABS: CREATININE 0.94 mg/dL (0.70-1.30)
[2018-12-31 08:00] VITALS: BP 137/77
--- NOTE | 2018-12-31 09:00 | NUR ---
Furniture Delivery Driver in to talk to patient. Patient states lives at home with alone. There are few steps in the home. Physician: patient states doesn't remember the doctors name Pharmacy: [facility] Home health services: none Patient's level of ADLs: MINIMAL ASSIST Patient has working utilities: all working DME: walker, wheelchair, crutch Follow-up physician's appointment after d/c: will be made by hospitalist nurse director upon discharge Does patient want to access PORTAL?: no Discharge plan discussed with patient, he states he lives at home alone, is normally independent in adls and ambulation, he states he has had some difficulty ambulating since his fall, discussed with him a short term intermediate for rehab prior to going back home, he declined, educated him that he could receive 5 days of physical therapy and is currently non weight bearing on his knee, he stated he could manage just fine at home and he wouldn't consider going to a SNF, stated he was at a SNF in the past and would not go back, also discussed with him [facility]NA and he declined any home services. ZAIDA DYER
--- NOTE | 2018-12-31 09:03 | NUR ---
NOTIFIED DR LUTZ THAT PT IV WAS LEAKING. PT REFUSED NEW HEPLOCK AND STATES "I DON'T TAKE NO IV MEDS".OK WITH DR LUTZ.
--- NOTE | 2018-12-31 09:50 | NUR ---
BILLIE BARNETT [id number] Please refer to the physician's history and physical for past medical history, comorbid conditions, and allergies. Diagnosis: AMBULATORY DYSFUNCTION, KNEE FRACTURE Fran Score: 18,AT RISK WOUND DESCRIPTIONS: Wound Number: 1, 2, and 3 intact scabs noted. No drainage at time of assessment. No open areas at time of assessment. No redness noted at time of assessment. Patient stated he fell and is unable to have surgery until his medicare kicks in. Surface the patient is resting on: Isoflex SKIN PREVENTION RECOMMENDATION: 1. Pressure redistribution support surface as appropriate 2. Elevate heels 3. Remove boots/TEDS every shift and reapply 4. Head of bed 30 degrees as tolerated 5. Assess nutrition and hydration 6. Manage moisture 7. Avoid the use of containment devices while in bed 8. Use absorptive products on surfaces limit layers of linens on bed 9. Turn and reposition every 1-2 hours in bed and every 1 hour in chair as tolerated 10. Weight shifts every 15 minutes while up in chair 11. Offloading with pillows or device to keep heels elevated off bed 12. Monitor skin at least every shift 13. Inspect under medical devices twice a day
--- NOTE | 2018-12-31 10:16 | NUR ---
MOTRIN 600 MG AND NORCO 5/325 MG GIVEN FOR C/O PAIN TO LEFT KNEE/BACK,01/05.
[2018-12-31 12:00] VITALS: BP 152/84
--- NOTE | 2018-12-31 13:15 | NUR ---
PHYSICAL THERAPY Patient was approached several times this date for therapy visit and was receiving wound care on first attmept, eating breakfast second attempt and upon third attempt this pm declined therapist request stating he wanted to stay in bed and rest. No services provided this date. Will continue per POC as able. Kentrell Lou, HAT PARTS CUTTER MACHINE
--- NOTE | 2018-12-31 14:27 | NUR ---
NORCO 5/325 MG GIVEN FOR C/O LLE/KNEE PAIN,02/05.
--- NOTE | 2018-12-31 15:25 | NUR ---
DR VALENCIA ROUNDED AND DISCUSSED PLAN OF CARE WITH PT.
[2018-12-31] MEDS ORDERED: VITAMIN D32000 UNI1 PO (15:29)
[2018-12-31] MEDS ORDERED: NORCO 5-325 TA1 EACH PO (15:29)
[2018-12-31] MEDS ORDERED: VITAMIN B-1100 M1 PO (15:29)
--- NOTE | 2018-12-31 15:34 | NUR ---
case management received a message that patient is being discharged today, spoke to patient to see if he had a ride home, patient did not, called consulting practice director to see if the hospital would pay for a cab ride to [place] where patient lives, this was approved. called nursing floor and spoke to banquet steward, informed her that when patient is ready for discharge to call a cab for patient
--- NOTE | 2018-12-31 15:45 | NUR ---
PT REFUSED TO ALLOW D/C PHOTOS.
--- NOTE | 2018-12-31 15:58 | NUR ---
Discharge instructions reviewed with patient/family. Patient receptive and verbalizes understanding. Follow-up care arranged. Written instructions given to patient/family. MARTIN EDWARD
--- NOTE | 2019-01-01 08:40 | NUR ---
PHYSICAL THERAPY CO-SIGN I approve of the Physical Therapy notes written above. COSME GAGE PT,DPT
== END 2018-12-31 15:58 | disposition home or self-care (01) | DRG 563 ==
LOC: ED 17:19 → 5E 23:11 → EDHOLD 23:11 → 5E 12-29
PROVIDERS: Family Medicine; Internal Medicine; Physician Assistant; Student in an Organized Health Care Education/Training Program; ADMIT Internal Medicine
DX: S82.142A Displaced bicondylar fracture of left tibia, initial encounter for closed fracture (principal); D61.818 Other pancytopenia; S82.092A Other fracture of left patella, initial encounter for closed fracture; F10.129 Alcohol abuse with intoxication, unspecified; R26.2 Difficulty in walking, not elsewhere classified; S13.4XXA Sprain of ligaments of cervical spine, initial encounter; M66.0 Rupture of popliteal cyst; F17.220 Nicotine dependence, chewing tobacco, uncomplicated; S00.03XA Contusion of scalp, initial encounter; M17.12 Unilateral primary osteoarthritis, left knee; R07.9 Chest pain, unspecified; F32.9 Major depressive disorder, single episode, unspecified; E66.3 Overweight; I10 Essential (primary) hypertension; F41.9 Anxiety disorder, unspecified; M25.462 Effusion, left knee; E87.6 Hypokalemia; W18.30XA Fall on same level, unspecified, initial encounter; Y93.89 Activity, other specified; Y99.8 Other external cause status; Z71.6 Tobacco abuse counseling; Z90.49 Acquired absence of other specified parts of digestive tract; Z82.49 Family history of ischemic heart disease and other diseases of the circulatory system; Z82.0 Family history of epilepsy and other diseases of the nervous system; Y92.098 Other place in other non-institutional residence as the place of occurrence of the external cause; Z68.26 Body mass index [BMI] 26.0-26.9, adult

== ENCOUNTER 2019-01-27 20:10 | Observation (INO) | payer OTHER ==
[~2019-01-27] VITALS: Ht 182.9 cm; Wt 92.7 kg
--- NOTE | ~2019-01-27 | EKG ---
[place], [place] ELECTROCARDIOGRAM REPORT NAME: BILLIE BARNETT UNIT #: [id number] ROOM: 424 DOCTOR: WILBERT DRAFT REPORT BIRTHDATE: [birth year] [facility] Test Date: 2019-01-27 Test Time: 20:12:41 Pat Name: BILLIE BARNETT Department: Room: 424 Gender: M Handle Sewer: : 1955 Requested By: RIK WARD Order Number: [id number] Reading MD: Henry Trejo MD Measurements Intervals [place] Rate: 72 P: 25 KS: 225 QRS: 6 QRSD: 97 T: 63 QT: 412 QTc: 451 Interpretive Statements Sinus rhythm Prolonged [place] interval Probable anteroseptal infarct, old Compared to ECG 12/29/2018 07:06:20 Myocardial infarct finding now present Electronically Signed On 01-28-2019 10:59:25 PDT by Henry Trejo MD CM:EKGRPT:ELECTROCARDIOGRAM REPORT [id number] RIK BENTON DRAFT REPORT RIK WARD DO
--- NOTE | ~2019-01-27 | EKG ---
[place], [place] ELECTROCARDIOGRAM REPORT NAME: BILLIE BARNETT UNIT #: [id number] ROOM: 424 DOCTOR: WILBERT DRAFT REPORT BIRTHDATE: [birth year] [facility] Test Date: 2019-01-28 Test Time: 02:27:18 Pat Name: BILLIE BARNETT Department: Room: 424 Gender: M Ampoule Filler: Ekaterina Quispe : 1955 Requested By: RIK WARD Order Number: [id number] Reading MD: Henry Trejo MD Measurements Intervals [place] Rate: 59 P: 52 UT: 222 QRS: 58 QRSD: 98 T: 63 QT: 472 QTc: 468 Interpretive Statements Sinus bradycardia Prolonged [place] interval Anteroseptal infarct, age indeterminate Electronically Signed On 01-28-2019 11:01:46 PDT by Henry Trejo MD CM:EKGRPT:ELECTROCARDIOGRAM REPORT [id number] RIK BENTON DRAFT REPORT RIK WARD DO
--- NOTE | ~2019-01-27 | EKG ---
[place], [place] ELECTROCARDIOGRAM REPORT NAME: BILLIE BARNETT UNIT #: [id number] ROOM: 424 DOCTOR: WILBERT DRAFT REPORT BIRTHDATE: [birth year] [facility] Test Date: 2019-01-27 Test Time: 22:56:56 Pat Name: BILLIE BARNETT Department: Room: 424 Gender: M Electronic Assembly: Ekaterina Quispe : 1955 Requested By: RIK WARD Order Number: [id number] Reading MD: Henry Trejo MD Measurements Intervals [place] Rate: 66 P: 45 IA: 279 QRS: 38 QRSD: 103 T: 51 QT: 480 QTc: 503 Interpretive Statements Sinus rhythm Ventricular premature complex Prolonged [place] interval Anteroseptal infarct, old Prolonged QT interval Electronically Signed On 01-28-2019 11:00:32 PDT by Henry Trejo MD CM:EKGRPT:ELECTROCARDIOGRAM REPORT [id number] RIK BENTON DRAFT REPORT RIK WARD DO
[~2019-01-27 20:10] MED LIST changes: +NORCO 5-325 TA1 EACH PO; +VITAMIN B-1100 M1 PO; +VITAMIN D32000 UNI1 PO
[2019-01-27 20:30] LABS: BASO # 0.1 10*3/uL (0.0-0.1); BASO % 1.1 % (0.0-1.0); EOS # 0.3 10*3/uL (0.0-0.4); EOS % 4.5 % (1.0-4.0); HEMATOCRIT 44.4 % (42.0-52.0); HEMOGLOBIN 14.7 g/dl (14.0-18.0); LYMPH # 2.2 10*3/uL (1.3-4.4); LYMPH % 35.5 % (27.0-41.0); MEAN CELL VOLUME 100.2 fl (80.0-94.0); MEAN CORPUSCULAR HGB 33.2 pg (27.0-31.0); MEAN CORPUSCULAR HGB CONC 33.1 g/dl (33.0-37.0); MEAN PLATELET VOLUME 8.7 fl (9.6-12.3); MONO # 0.7 10*3/uL (0.1-1.0); MONO % 10.8 % (3.0-9.0); NEUT % 47.9 % (47.0-73.0); PLATELET COUNT AUTOMATED 160 10*3/uL (130-400); RED BLOOD COUNT 4.43 10*6/uL (4.50-5.90); WHITE BLOOD COUNT 6.3 10*3/uL (4.8-10.8)
[2019-01-27 20:42] LABS: ACT PARTIAL THROMBO TIME 26.2 SECONDS (20.0-32.1); INTERNATIONAL NORM RATIO 0.9 (2.0-3.5)
--- NOTE | 2019-01-27 20:47 | NUR ---
Dr Reveles is at the bedside.
[2019-01-27 20:49] LABS: ALBUMIN 3.8 gm/dl (3.1-4.5); ALKALINE PHOSPHATASE 128 U/L (45-117); BUN 6 mg/dl (7-24); CHLORIDE 108 mmol/L (98-107); CREATININE 0.86 mg/dL (0.70-1.30); POTASSIUM 3.3 mmol/L (3.5-5.1); SGOT/AST 22 IU/L (3-35); SGPT/ALT 33 U/L (12-78); SODIUM 143 mmol/L (136-145); TOTAL PROTEIN 7.3 gm/dL (6.4-8.2)
[2019-01-27 20:52] LABS: TROPONIN I < 0.015 ng/ml (<0.045)
--- NOTE | 2019-01-27 21:00 | NUR ---
Laying on left side and in no obvious distress. Awaiting inpatient bed assignment. Will monitor.
[2019-01-27 21:22] LABS: URINE AMPHETAMINES < 1000 (1000ng/ml); URINE BARBITURATES < 200 (200ng/ml); URINE BENZODIAZEPINES < 200 (200ng/ml); URINE CANNABINOIDS (THC) < 50 (50ng/ml); URINE COCAINE < 300 (300ng/ml); URINE METHADONE < 300 (300ng/ml); URINE OPIATES < 300 (300ng/ml); URINE PHENCYCLIDINE < 25 (25ng/ml)
[2019-01-27 21:24] VITALS: BP 130/78
--- NOTE | 2019-01-27 21:28 | NUR ---
UPDATED ON ADMISSION AND AWAITING ROOM ASSIGNMENT. CONTINUES TO COMPLAIN OF CHEST PAIN WHEN HE AWAKENS BUT HAS BEEN RESTING QUIETLY WITH EYES CLOSED AND IN NO OBVIOUS DISTRESS.
--- NOTE | 2019-01-27 21:32 | NUR ---
AWAITING MEDS FROM PHARMACY.
--- NOTE | 2019-01-27 21:43 | NUR ---
SPOKE WITH MICAH TO ADVISE OF
[2019-01-27 21:55] VITALS: BP 144/92
--- NOTE | 2019-01-27 21:55 | NUR ---
A 63, admitted to , under the services of RADHA Franks DO with a diagnosis of chest pain. Chief complaint is called EMS for CP, he was givenASA, Nitro and IV started brought to ER, when asked about his chest pain said he didn't have pain and according to ER pt. argumentative.. Patient arrived via stretcher from ER. Monitor applied. Initial assessment completed. Vital signs taken and recorded. RADHA FRANKS DO notified of admission to the unit. Orders received. See assessment for past medical history, medications and allergies. Patient and/or family oriented to unit. [facility] visitation policy reviewed. Clothing/patient valuable form completed. MICAH SMITH
[2019-01-28] VITALS: BP 129/51
[2019-01-28 02:39] LABS: BUN 7 mg/dl (7-24); CHLORIDE 109 mmol/L (98-107); CREATININE 0.84 mg/dL (0.70-1.30); PHOSPHOROUS 2.9 mg/dL (2.5-4.9); POTASSIUM 3.3 mmol/L (3.5-5.1); SODIUM 146 mmol/L (136-145)
--- NOTE | 2019-01-28 03:43 | NUR ---
PATIENT RESTING WITH EYES CLOSED. RESPIRATIONS EASY AND UNLABORED. CALL LIGHT WITHIN REACH. WILL MONITOR.
[2019-01-28 08:00] VITALS: BP 160/80
[2019-01-28 12:00] VITALS: BP 154/76
--- NOTE | 2019-01-28 12:20 | NUR ---
PT OFF FLOOR FOR X-RAY AT THIS TIME.
[2019-01-28] MEDS ORDERED: CYCLOBENZAPRINE10 MG PO (14:08)
[2019-01-28] MEDS ORDERED: PREDNISONE10 MG PO (14:08)
--- NOTE | 2019-01-28 14:30 | NUR ---
PT REPORTS NO WAY TO GET HOME, STATES HE CAME HERE BY EMS, STATES HE LIVES IN [place]. SPOKE WITH NURSING MATERIAL CUTTER, AWAITING CALL BACK.
--- NOTE | 2019-01-28 15:50 | NUR ---
Discharge instructions reviewed with patient/family. Patient receptive and verbalizes understanding. Follow-up care arranged. Written instructions given to patient/family. IV site and folder machine removed. [facility]. SAURABH GASTELUM
== END 2019-01-28 15:50 | disposition home or self-care (01) ==
LOC: ED 20:10 → EDHOLD 21:00 → 4E 21:00
PROVIDERS: Student in an Organized Health Care Education/Training Program; ADMIT Internal Medicine
DX: R07.89 Other chest pain (principal); I10 Essential (primary) hypertension; E87.6 Hypokalemia; F32.9 Major depressive disorder, single episode, unspecified; F10.929 Alcohol use, unspecified with intoxication, unspecified; R29.6 Repeated falls; E87.8 Other disorders of electrolyte and fluid balance, not elsewhere classified; D53.9 Nutritional anemia, unspecified; Z87.891 Personal history of nicotine dependence